=== PATIENT | male | born 1965 | race African-American/Black ===

== ENCOUNTER 2017-04-22 18:07 | Observation (INO) ==
[2017-04-22] MEDS ORDERED: SODIUM CHLORIDE 0.9% 1,000 ML IV STA (18:48)
[2017-04-22 18:55] LABS: Basophils % 0.2 % (0.0-0.8); Eosinophils % 0.3 % (0.00-10.9); Hematocrit 39.2 VOL% (42.0-52.0); Hemoglobin 12.9 GM/DL (14.0-18.0); Immature Granulocytes % 0.3 %; Immature Granulocytes Absolute 0.02 #; Lymphocytes # 0.6 10*3/uL (1.4-4.0); Lymphocytes % 9.8 % (21.2-54.2); Mean Corpuscular HGB Conc 32.9 GM/DL (32-36); Mean Corpuscular Hemoglobin 27 PG (27-34); Mean Corpuscular Volume 83.4 FL (87-102); Mean Platelet Volume 12.1 FL (9.6-12.0); Monocytes # 0.3 10*3/uL (0.11-0.8); Monocytes % 4.5 % (1.7-12.7); Neutrophils # 5.3 10*3/uL (1.4-7.4); Neutrophils % 84.9 % (38.7-73.9); Platelet Count 262 T/CUMM (130-400); Red Cell Distribution Width 13.2 % (9.3-17.3); White Blood Count 6.2 T/CUMM (4-12)
--- NOTE | 2017-04-22 19:15 | XRay Report ---
Portable chest April 22, 2017 Indication: Shortness of breath Comparison images dated April 09, 2014. Findings: Cardiomediastinal contours are stable. Sternotomy wires and midline. Focal scarring within the left lingular lobe, stable. Lungs are otherwise clear bilaterally. No acute osseous abnormalities. Impression: No acute cardiopulmonary findings PROCEDURE INTERPRETED AT [facility] DEPARTMENT OF RADIOLOGY Final Report Signed by: Jono Perry
[2017-04-22 19:25] LABS: Alanine Aminotransferase 30 U/L (16-61); Albumin 3.9 G/DL (3.4-5.0); Alkaline Phosphatase 92 U/L (45-117); Aspartate Amino Transferase 26 U/L (0-37); Blood Urea Nitrogen 41 MG/DL (7-18); Calcium 9.5 MG/DL (8.5-10.1); Glucose 444 MG/DL (74-106); Osmolality,Calculated 294.4 MOS/KG (273-304); Potassium 4.7 MMOL/L (3.5-5.1); Sodium 133 MMOL/L (136-145); Troponin I Only < 0.015 NG/ML (0.00-0.045)
--- NOTE | 2017-04-22 20:36 | Emergency Department Note ---
IRaulito Brooke, am scribing for, and in the presence of, Stefanie Pugh MD 18: 56. Lexy Campbell Leanne, MD, personally performed the services described in this documentation, ascribed by Makayla Cabezas in my presence, and it is both accurate and complete . Arrival - Arrival Chief Complaint: Syncope Stated Complaint: fainting spell ED Nursing Triage Note: PT C/O NEAR SYNCOPAL EPISODE WHILE DRIVING, JUST [employer]. PT REPORTS FEELING LIGHT HEADED AND CLAMMY. STATES HE WAS ABLE TO PULL VEHICLE OVER AND FAMILY TOLD HIM HE WAS "TREMBLING." PT IS [id number] CURRENTLY Mode of Arrival: Ambulatory Limitations: No Limitations Source: Patient, Family, RN Notes Reviewed Time Seen by Provider: 04/22/17 18:45 - History of Present Illness HPI Narrative: Patient is a 51 year old male who presents to the ED with c/o possible syncopal episode that happened prior to arrival. Patient says he was driving and started feeling "faint" so he pulled over. Patient says he thinks he "blanked out for a second." Family in the car with him reports that he started shaking all over but it only lasted a few seconds. Patient says he has been lightheaded since this episode happened. He says he did have some shortness of breath right after this episode but says he no longer does. He denies having any chest pain or any other pain. Prior to driving, he was not in the heat and says he was at a "family meeting" inside. He says he has not really been doing anything else, today, besides cleaning his house. He says on the way to the ED, he did have to stop at [employer] and have a bowel movement. He reports having diarrhea since yesterday and also vomited once last night. He says he has been drinking plenty of fluids. He did have a similar episode, in October, but states that todays episode was worse. Patient has PMHx of HTN and IDDM. Patient had a heart and kidney transplant in 2010. His Specialist is located in [place]. Allergies/Adverse Reactions: Allergies Allergy/AdvReac Type Severity Reaction Status Date / Time No Known Allergies Allergy Verified 04/22/17 18:26 Home Medications: Home Medications Medication Instructions Recorded Confirmed Type Ibuprofen Tab [Motrin Tab] 600 mg PO QID #30 tablet 08/02/16 Rx traMADol TAB [Ultram] 50 mg PO Q6H #20 tablet 01/16/17 Rx Review of System - Review of System 12 point system: reviewed and no additional remarkable complaints except as stated - Review of System Constitutional: Absent: fever Respiratory: Absent: respiratory distress Cardiovascular: Present: syncope (possible). Absent: chest pain Gastrointestinal: Present: vomiting (once last night), diarrhea Skin: Absent: rash Neurological: Present: other (lightheaded) Medical,Surgical,& Family Hx - Medical History Cardio: History of: Hypertension Endocrine: History of: Diabetes Mellitus (IDDM) - Surgical History Cardiac Surgeries: Sugical HX of: Cardiac Surgery (HEART TRANSPLANT 2010) Thoracic Surgeries: Surgical HX of;: Kidney (Renal Surgery) (right kidney transplant) - Social History Smoking Status: Never smoker Frequency of Alcohol Use: None Type of Drug Use: None Exam Vital Signs: Vital Signs Temperature 97.6 F 04/22/17 18:34 Pulse Rate 83 04/22/17 19:25 Respiratory Rate 20 04/22/17 18:45 Blood Pressure 142/80 04/22/17 19:25 O2 Sat by Pulse Oximetry 96 04/22/17 18:45 - General General appearance: alert, in no apparent distress - Head Head exam: Present: atraumatic, normocephalic - Eye Eye exam: Present: normal appearance, PERRL, EOMI - ENT ENT exam: Present: normal exam - Neck Neck exam: Present: normal inspection - Chest Chest inspection: Present: normal inspection, symmetric chest wall rise - Respiratory Respiratory exam: Present: normal lung sounds bilaterally - Cardiovascular Cardiovascular exam: Present: regular rate, normal rhythm, normal heart sounds - Abdominal Exam Abdominal exam: Present: soft, normal bowel sounds. Absent: distention, tenderness - Extremities Exam Extremities exam: Present: normal inspection - Back Exam Back exam: Present: normal inspection - Neurological Exam Neurological exam: Present: alert, oriented X3 - Psychiatric Psychiatric exam: Present: normal affect, normal mood - Skin Skin exam: Present: warm, dry, intact, normal color Course Course Narrative: concern since pt had syncope while driving. orthostatis negative. could be related to dehydration given onset of diarrhea and vomiting yesterday. BUN and Cr elevated. EKG and other labs unremarkable. pt asymptomatic at this time but given heart transplant and syncope while sitting, feel it is best to obs overnight for arrhythmias and rehydrate. Results - Labs CBC & BMP: 04/22/17 18:40 04/22/17 18:40 Lab Results: I have reviewed the patients labs Labs: Laboratory Tests 04/22/17 18:40 WBC 6.2 RBC 4.70 Hgb 12.9 L Hct 39.2 L MCV 83.4 L MCH 27 MCHC 32.9 RDW 13.2 Plt Count 262 MPV 12.1 H Neut % (Auto) 84.9 H Lymph % (Auto) 9.8 L [place] % (Auto) 4.5 Eos % (Auto) 0.3 Baso % (Auto) 0.2 Neut # (Auto) 5.3 Lymph # (Auto) 0.6 L [place] # (Auto) 0.3 Eos # (Auto) 0.0 Baso # (Auto) 0.0 Immature Gran % 0.3 Nucleated RBC % 0.0 Immature Gran # 0.02 Nucleated RBCs # 0.00 Immature Plt Fraction 0.0 Laboratory Tests 04/22/17 04/22/17 18:40 18:40 Sodium 133 L Potassium 4.7 Chloride 100 Carbon Dioxide 26 Anion Gap 11.7 BUN 41 H Creatinine 1.80 H GFR Calculation 59 BUN/Creatinine Ratio 22.00 H Glucose 444 H Calculated Osmolality 294.4 Calcium 9.5 Total Bilirubin 0.50 AST 26 ALT 30 Alkaline Phosphatase 92 Troponin I < 0.015 B-Natriuretic Peptide 105 H Total Protein 7.0 Albumin 3.9 Globulin 3.1 Albumin/Globulin Ratio 1.2 Serum Alcohol < 15 L - EKG EKG results: interpreted by AMARI, sinus rhythm, normal QRS - Impressions incomplete RBBB. - Diagnostic Findings Procedure: Chest x-ray: report reviewed by me (No acute cardiopulmonary findings.)
--- NOTE | 2017-04-22 21:12 | Hospitalist History & Physical ---
Assessment and Plan (1) Syncope Status: Acute Assessment and plan: Admit patient to monitored bed. Patient will be admitted to observation. Will consult neurology for evaluation tomorrow especially since this is recurrence of events. Patient should have an MRI of the brain without contrast. 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 Opportunistic infections can also an issue in this situation. Check serum toxoplasma IgG IgM, cryptococcal antigen. In the differential diagnosis of his syncopal is seizures.. Consultation with neurology to comment on that. Current Visit: Yes (2) Heart transplant status Status: Acute Assessment and plan: Continue immunosuppressive medication Current Visit: Yes (3) Renal transplant, status post Status: Acute Assessment and plan: Continue immunosuppressive medication Current Visit: Yes (4) Increased infection risk status post immunosuppressive therapy Status: Acute Current Visit: Yes (5) Diabetes mellitus type 2 in obese Status: Acute Assessment and plan: Home medications continued. Will check Accu-Cheks q. before meals and at bedtime and supplement home therapy with sliding scale Humulin R. Attention to be fed to hypoglycemic events. Both D50 W and glucagon have been ordered. Current Visit: Yes (6) DVT prophylaxis Status: Acute Assessment and plan: We use unfractionated heparin 5000 units every 12 hours subcu. Note patient's creatinine is 1.8 Current Visit: Yes History of Present Illness Chief complaint: Syncopal episode History of present illness: Patient is a 51 year old male who presents to the ED with c/o possible syncopal episode that happened prior to arrival. Patient says he was driving and started feeling "faint" so he pulled over. Patient says he thinks he "blanked out for a second." Family in the car with him reports that he started shaking all over but it only lasted a few seconds. Patient denies any bite of the tongue and denies any autonomic dyscontrol. Patient says he has been lightheaded since this episode happened and has a slight headache. Patient doubts that he may have been hypoglycemic because he had just eaten at a family gathering within the hour before this happened. That eating fried fish. He denies any food allergies. He says he did have some shortness of breath right after this episode but says he no longer does. He denies having any chest pain or any other pain. After the event today states that he came back to the and was able to drive from [email or web address] where he had a bowel movement that was loose. He denies prolonged diarrhea. Last night after having had a grilled chicken dinner with his son who was visiting from out of town this sat for a long time when he drank 8 ounces of wine and went to bed. Around 3:00 he reports he woke up he vomited. He denies having had nausea and vomiting all day. Patient does have history of hypertension and diabetes and takes insulin. He has a history of heart and kidney transplant through the [facility] in [place]. 6 months ago he had an event like this and was managed there unfortunately could not find what was a long history is. Patient is on immunosuppressive medications manage rejection of his transplants. He states that since he has been here these medications are on record here. I have just discussed with the emergency room nurse to make sure that we get that information on record. I have searched the computer myself I cannot see it at this point. Home Medications Medication Instructions Recorded Confirmed Type Aspirin 81 mg PO DAILY 04/22/17 04/22/17 History Calcium Carbonate [Calcium 1,000 mg PO BID 04/22/17 04/22/17 History Carbonate Chew Tab] Cetirizine Tab [ZyrTEC Tab] 10 mg PO DAILY 04/22/17 04/22/17 History Insulin Detemir [Levemir] 40 unit SUBCUT BEDTIME 04/22/17 04/22/17 History Insulin Glargine [Lantus] 1 unit SUBCUT AC 04/22/17 04/22/17 History Magnesium Chloride [Slow Mag] 64 mg PO TID 04/22/17 04/22/17 History Mycophenolate Mofetil Cap 500 mg PO BID 04/22/17 04/22/17 History [Cellcept] Pravastatin [Pravachol] 20 mg PO BEDTIME 04/22/17 04/22/17 History Sildenafil [Revatio] 20 mg PO TID 04/22/17 04/22/17 History hydrALAZINE TAB [Apresoline Tab] 100 mg PO TID 04/22/17 04/22/17 History predniSONE TAB [PredniSONE] 10 mg PO DAILY 04/22/17 04/22/17 History Allergies Allergy/AdvReac Type Severity Reaction Status Date / Time No Known Allergies Allergy Verified 04/22/17 18:26 Medical,Surgical,& Family Hx - Medical History Cardio: History of: Hypertension Endocrine: History of: Diabetes Mellitus (IDDM) - Surgical History Cardiac Surgeries: Sugical HX of: Cardiac Surgery (HEART TRANSPLANT 2011) Thoracic Surgeries: Surgical HX of;: Kidney (Renal Surgery) (right kidney transplant) - Social History Smoking Status: Never smoker Frequency of Alcohol Use: None Type of Drug Use: None Review of systems: 12 point system assessment is been done. Patient is currently awake and in no acute distress. Denies any focal neurologic deficits cognitive function is good he does acknowledge a light headache. All than the chief complaint history of presenting illness and his past medical history 12 point system assessment is negative. Exam - Constitutional Vitals: Period Temp Pulse Resp BP Sys/Marin Pulse Ox Last 24 Hr 97.6 F-97.6 F 81-91 18-20 130-162/80-95 94-96 General appearance: over weight - Head Head exam: Present: normocephalic, atraumatic - Eye Eye exam: Present: EOMI, other (Dusky is greater) Pupils: Present: NICOLAS - ENT ENT exam: Present: normal oropharynx - Neck Neck exam: Present: normal inspection, other (No adenopathy) - Respiratory Respiratory exam: Present: clear to auscultation bilaterally - Cardiovascular Cardiovascular exam: Present: regular rate and rhythm - GI/Abdominal GI/Abdominal exam: Present: normal bowel sounds, soft, other (Slightly rotund abdomen distended tender to palpation) - Extremities Exam Extremities exam: Present: full ROM, other (Good muscle tone normal strength) - Neurological Exam Neurological exam: Present: alert, oriented X3, CN II-XII intact - Psychiatric Psychiatric exam: Present: normal affect, normal mood - Skin Skin exam: Present: normal color, warm, dry Results - Labs CBC & BMP: 04/22/17 18:40 04/22/17 18:40 Lab Results: I have reviewed the past 24 hour labs (Noted mild hyponatremia 1 33 mmol/L creatinine 1.8 mg percent hypoglycemia with a sugar of 444 mg percent modest microcytic anemia with MCV of 83.4 hemoglobin of 12.9 hematocrit of 39.2 BNP of only 105)
[2017-04-22 21:25] LABS: Apearance,Urine CLEAR (Clear); Bilirubin,Urine Negative (Negative); Blood, Urine Negative (Negative); Glucose,Urine (UA) >=500 mg/dL (Negative); Ketones,Urine 5 mg/dL (Negative); Nitrite,Urine Negative (Negative); Protein,Urine Negative; Squamous Epithelial Cell,Urine Occasional /HPF (0-10); Urine Color Straw (Yellow); Urine Specific Gravity 1.014 (1.001-1.035); Urine Urobilinogen < 2.0 EU/DL (0.2-1.0)
[2017-04-22] MEDS ORDERED: GLUCAGON 1 MG VIAL IM PRN (21:44)
[2017-04-22] MEDS ORDERED: DEXTROSE 50% 25 GM/50 ML SYRINGE IV PRN (21:44)
[2017-04-22] MEDS ORDERED: PRAVASTATIN 20 MG TABLET PO SCH (22:00)
[2017-04-22] MEDS: MYCOPHENOLATE MOFETIL 250 MG CAPSULE PO SCH (23:49)
[2017-04-22] MEDS: CALCIUM CARBONATE CHEW 500 MG TABLET PO SCH (23:49)
[2017-04-22] MEDS: HEPARIN 5,000 UNIT/1 ML VIAL SUBCUT SCH (23:50)
[2017-04-22] MEDS: INSULIN GLARGINE 100 UNIT/ML SUBCUT SCH (23:51)
[2017-04-23] MEDS: MAGNESIUM CHLORIDE 64 MG TABLET PO SCH ×3 (08:47→21:25)
[2017-04-23] MEDS: MYCOPHENOLATE MOFETIL 250 MG CAPSULE PO SCH ×2 (08:47→21:23)
[2017-04-23] MEDS: CALCIUM CARBONATE CHEW 500 MG TABLET PO SCH ×2 (08:47→21:22)
[2017-04-23] MEDS: ASPIRIN CHEW 81 MG TABLET PO SCH (08:48)
[2017-04-23] MEDS: predniSONE 10 MG TABLET PO SCH (08:48)
[2017-04-23] MEDS: SILDENAFIL 20 MG TABLET PO SCH ×3 (08:48→21:36)
[2017-04-23] MEDS: CETIRIZINE 10 MG TABLET PO SCH (08:48)
--- NOTE | 2017-04-23 09:44 | EKG Report ---
Stationary ECG Study [facility] Test Date: 04/22/2017 6:28:03 PM Pat Name: ALONDRA AYOUB Department: Room: 436 Gender: M Shank Skinner: Enzo : 1965 Requested by: Iva Fountain Order Number: [id number] Reading MD: YANI MARK Intervals [place] Rate: 89 P: 65 OK: 166 QRS: 120 QRSD: 109 T: 73 QT: 303 QTc: 349 Interpretive Statements SINUS RHYTHM RIGHT AXIS DEVIATION INCOMPLETE RIGHT BUNDLE BRANCH BLOCK NONSPECIFIC T WAVE ABNORMALITY Electronically Signed On 04-23-17 16:10:07 CDT by YANI MARK [email or web address]
--- NOTE | 2017-04-23 09:54 | EKG Report ---
Stationary ECG Study [facility] Test Date: 04/23/2017 7:57:20 AM Pat Name: ALONDRA AYOUB Department: Room: 436 Gender: M Operations Liaison: OLIVE : 1965 Requested by: Gita Wood Order Number: [id number] Reading MD: YANI MARK Intervals [place] Rate: 81 P: 65 DC: 161 QRS: 125 QRSD: 114 T: 44 QT: 384 QTc: 422 Interpretive Statements SINUS RHYTHM INCOMPLETE RIGHT BUNDLE BRANCH BLOCK Electronically Signed On 04-23-17 16:14:39 CDT by YANI MARK [email or web address]
--- NOTE | 2017-04-23 11:43 | Hospitalist Progress Note ---
Assessment and Plan (1) Syncope Status: Acute Assessment and plan: 1)syncope/spell- begin secured entrance monitor. consult cardiology. restart his home meds for transplant immunosupression and HTN. Neuro also consulted. MRI this afternoon. 2)DMT2- restart his home meds and SSI 3)Heart and kidney transplant- continue meds for immunosuppression. Current Visit: Yes (2) Heart transplant status Status: Acute Current Visit: Yes (3) Renal transplant, status post Status: Acute Current Visit: Yes (4) Diabetes mellitus type 2 in obese Status: Acute Current Visit: Yes (5) DVT prophylaxis Status: Acute Current Visit: Yes Hospitalist: Subjective Interval history: Mr Monson recounted the events of yesterday and also the previous time to me this morning. He says he felt back to himself within an hour. The spell happened as he was driving away from family meeting to plan a reunion which he says went well and was not tense or upsetting. He had spells like this in the past when he stood too fast. He also notes that when he eats a regular meal he begins to feel tired and weak about 30 minutes later. He has not had syncope in that circumstance but this has been happening for 2-3 weeks. He also relates diarrhea after the spell yesterday. He has not had weight loss. His blood sugar has not been low when he has had these symptoms, and once it was in the 170s he recalls. He denies frequent alcohol or intoxication, but had had 8oz of wine prior to the event yesterday. Exam - Constitutional Vitals: Period Temp Pulse Resp BP Sys/Marin Pulse Ox Last 24 Hr 96.7 F-98.3 F 77-91 16-20 130-172/80-101 91-96 General appearance: no acute distress, over weight - Head Head exam: Present: normocephalic, atraumatic - Eye Eye exam: Present: EOMI. Absent: scleral icterus - Respiratory Respiratory exam: Present: clear to auscultation bilaterally - Cardiovascular Cardiovascular exam: Present: regular rate and rhythm - GI/Abdominal GI/Abdominal exam: Present: normal bowel sounds, soft. Absent: tenderness - Extremities Exam Extremities exam: Absent: edema Results - Labs CBC & BMP: 04/22/17 18:40 04/22/17 18:40 Lab Results: I have reviewed the past 24 hour labs
[2017-04-23] MEDS ORDERED: DEXTROSE 50% 25 GM/50 ML SYRINGE IV PRN (11:48)
[2017-04-23] MEDS: INSULIN LISPRO 100 UNIT/ML SUBCUT SCH ×3 (12:18→21:26)
[2017-04-23] MEDS: HEPARIN 5,000 UNIT/1 ML VIAL SUBCUT SCH ×2 (12:18→21:27)
--- NOTE | 2017-04-23 14:47 | Cardiology Consult Note ---
Sami Campbell Lesley, KAMRAN, am scribing for, and in the presence of, Chung Briceño MD 14:45. 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 Monson is a 51 year old male with a history of heart and kidney transplant. Patient does not see a major gifts officer locally, but follows up with [facility] transplant team twice a year with an echocardiogram, EKG, and right heart cath yearly. Patient was last seen at [facility] in 01/2017, no records are available. Past surgical history is significant for heart transplant and kidney transplant in 2010. Past medical history significant for hypertension, immunosuppression therapy, and diabetes. Cardiac risk factors significant for obesity, hypertension, diabetes, and dyslipidemia. The patient denies a history of smoking, he admits occasional alcohol use. He denies illicit drug use. Patient presented to the emergency room after possible syncopal episode. He reports that he was driving and began to feel lightheaded, he reports he pulled to the side of the road to allow the episode passed. He reports that his son told him that he was holding onto the steering well with his hands and shaking all over. This was reported to have lasted only a few seconds. He denies chest pain with the episode, he did report some shortness of breath immediately post episode. He does report 1 loose stool that he noted after this episode, and he states he had his son bring him to the ER after that. The patient reports he just eaten a large meal at a family gathering, so hypoglycemia seems less likely. The patient reports that he has had an episode like this in the more recent past, he reports he was seen at this hospital for this episode, however I am unable to find previous records confirming this. The patient is seen sitting up in a chair, on 2 L of oxygen by nasal cannula. He denies shortness of breath, chest pain, nausea, vomiting, or diarrhea. Vital signs have remained stable, including orthostatic vital signs. EKG shows sinus rhythm, rate in the 80s. Chest x-ray shows no acute cardiopulmonary findings. Labs reviewed: Hemoglobin 12.9, hematocrit 39.2, sodium 133, potassium 4.7, creatinine 1.8, BUN 41, glucose 444, magnesium 1.9, BNP 105, troponin I negative, urinalysis negative. Recommend continued telemetry monitoring, could consider Holter monitor upon discharge. Plan for MRI of the brain this afternoon, and neurology has been consulted. ASSESSMENT/PLAN: 1. POSSIBLE SYNCOPAL EPISODE -continue youth nutritional monitor, neurology consult, brain MRI. 2. STATUS POST HEART TRANSPLANT -continue immunosuppressive medications, no records available from [facility], patient reports he had recent echo and EKG. He reports he was told he needs to better control his diabetes. 3. STATUS POST RENAL TRANSPLANT -continue immunosuppressive medications. 4. HYPERTENSION -meds restarted, monitor and adjust medications accordingly. 5. DIABETES -Accu-Cheks and sliding scale ordered, monitor. Cardiology addendum. Patient examined chart reviewed and discussed with nurse Lacie Gallardo. Patient had brief near syncopal episode while driving his car. No loss of consciousness. Denied palpitations or chest pain. No seizure activity. Patient is comfortable at this time and has had no recurrent symptoms. There is no clinical history to suggest arrhythmias. Status post heart transplant and kidney transplant June 2011 at [facility] for hypertensive cardiomyopathy. He is seen every 4 months in cardiac follow-up at [facility]. EKG shows sinus rhythm with right axis deviation and right bundle branch block and ST-T wave changes. Chest x-ray normal heart size no infiltrate or effusion. Patient denies fever chills or night sweats. No cough. No dysuria. He does have long-standing hypertension. Pressure today 146/84 in the left arm by me Lifetime non-smoker. Rare social drinker only. 5 feet 8 inches tall 204 pounds. He sleeps on 2 pillows and has nocturia twice nightly which is chronic. Denies chest pain, sustained palpitations dizziness or leg edema Creatinine 1.80 BUN 41 potassium 4.7 Longtime diabetic. Sugars are running high. To 88 and 347 Chronic immunosuppressive therapy with CellCept 500 mg twice daily and prednisone 10 mg daily Plan Ambulate and monitor Echo Doppler Currently takes Coreg 25 mg twice daily and hydralazine 100 mg 3 times daily for hypertension Agree with adding diltiazem 180 mg daily and may require additional therapy. CC: Gita Wood MD - Home Medications and Allergies Home Medications: Home Medications Medication Instructions Recorded Confirmed Type Aspirin 81 mg PO DAILY 04/22/17 04/23/17 History Calcium Carbonate [Calcium 1,000 mg PO BID 04/22/17 04/23/17 History Carbonate Chew Tab] Cetirizine Tab [ZyrTEC Tab] 10 mg PO DAILY 04/22/17 04/23/17 History Insulin Detemir [Levemir] 40 unit SUBCUT BEDTIME 04/22/17 04/23/17 History Insulin Glargine [Lantus] 1 unit SUBCUT AC 04/22/17 04/23/17 History Magnesium Chloride [Slow Mag] 64 mg PO TID 04/22/17 04/23/17 History Mycophenolate Mofetil Cap 500 mg PO BID 04/22/17 04/23/17 History [Cellcept] Sildenafil [Revatio] 20 mg PO TID 04/22/17 04/23/17 History hydrALAZINE TAB [Apresoline Tab] 100 mg PO TID 04/22/17 04/23/17 History predniSONE TAB [PredniSONE] 10 mg PO DAILY 04/22/17 04/23/17 History Atorvastatin [Lipitor] 40 mg PO BEDTIME 04/23/17 04/23/17 History Carvedilol 25 mg PO BID W/MEALS 04/23/17 04/23/17 History Tacrolimus Cap [Prograf Cap] 1 mg PO BID 04/23/17 04/23/17 History dilTIAZem HCl [Cartia XT] 180 mg PO DAILY 04/23/17 04/23/17 History Allergies/Adverse Reactions: Allergies Allergy/AdvReac Type Severity Reaction Status Date / Time No Known Allergies Allergy Verified 04/22/17 18:26 - Constitutional Constitutional: Absent: anorexia, chills, daytime sleepiness, frequent falls, headache(s), lethargy - EENT Eyes: Absent: blurry vision Nose, mouth and throat: Absent: dysphagia, epistaxis, headache(s) - Cardiovascular Cardiovascular: Present: lightheadedness, orthopnea. Absent: chest pain at rest , chest pain with activity, diaphoresis, dyspnea, dyspnea on exertion, edema, radiating jaw, neck or arm pain, palpitations - Respiratory Respiratory: Absent: cough, dyspnea, hemoptysis, dyspnea on exertion, wheezing - Gastrointestinal Gastrointestinal: Absent: abdominal pain, bloating, change in bowel habits, coffee ground emesis, heartburn, hematemesis, nausea - Genitourinary Genitourinary: Absent: difficulty urinating, dysuria - Neurological Neurological: Present: dizziness. Absent: abnormal gait, abnormal speech, behavioral changes - Psychiatric Psychiatric: Absent: anxiety, confusion Medical,Surgical,& Family Hx - Medical History Cardio: History of: Hypertension Endocrine: History of: Diabetes Mellitus (IDDM) - Surgical History Cardiac Surgeries: Sugical HX of: Cardiac Surgery (HEART TRANSPLANT 2010) Thoracic Surgeries: Surgical HX of;: Kidney (Renal Surgery) (right kidney transplant) - Social History Smoking Status: Never smoker Frequency of Alcohol Use: None Type of Drug Use: None Functional capacity: independent ambulation Physical Examination Vital Signs Temp Pulse Resp BP Pulse Ox 97.6 F 89 18 142/88 94 L 04/22/17 18:21 04/22/17 18:21 04/22/17 18:21 04/22/17 18:21 04/22/17 18:21 Exam: General: [Appears well with no apparent distress.] [Pleasant and cooperative. ] [Appears comfortable.] HEENT: [PERRL, normocephalic, atraumatic]. [Mucous membranes moist.] [No jaundice noted.] [Conjunctiva moist and clear, sclerae anicteric.] Neck: [No JVD/HJR, no thyromegaly or lymphadenopathy noted.] [ No carotid bruit appreciated.] Cardiac: [Regular rate and rhythm.] [No murmur rub or gallop.] [PMI is nondisplaced.] Lungs: [Clear to auscultation without accessory muscle use to assist the respiratory pattern.] [Oxygen in use via nasal cannula at 2 L.] Abdomen: [Soft, bowel sounds normoactive.] [Nontender and nondistended.] [No abdominal bruit or thrill noted.] [No masses noted.] Musculoskeletal: [No fluid collection.] [Full range of motion is noted.] Extremities: [No clubbing, cyanosis noted.] [ No edema noted.] [Upper extremity pulses 2+.] [Lower extremity pulses 2+.] [Capillary refill less than 3 seconds.] Skin: [No unusual lesions or rashes.] [No skin breakdown appreciated.] Neuro: [Awake, alert and oriented 3.] [Moves all extremities well without hemiparesis or paralysis.] [No essential tremor is appreciated.] Result/EKG - Labs CBC & BMP: 04/22/17 18:40 04/22/17 18:40 Lab Results: I have reviewed the past 24 hour labs Labs: Laboratory Results - last 24 hr 04/22/17 04/22/17 04/22/17 18:40 18:40 18:40 WBC 6.2 RBC 4.70 Hgb 12.9 L Hct 39.2 L MCV 83.4 L MCH 27 MCHC 32.9 RDW 13.2 Plt Count 262 MPV 12.1 H Neut % (Auto) 84.9 H Lymph % (Auto) 9.8 L [place] % (Auto) 4.5 Eos % (Auto) 0.3 Baso % (Auto) 0.2 Neut # (Auto) 5.3 Lymph # (Auto) 0.6 L [place] # (Auto) 0.3 Eos # (Auto) 0.0 Baso # (Auto) 0.0 Immature Gran % 0.3 Nucleated RBC % 0.0 Immature Gran # 0.02 Nucleated RBCs # 0.00 Immature Plt Fraction 0.0 Sodium 133 L Potassium 4.7 Chloride 100 Carbon Dioxide 26 Anion Gap 11.7 BUN 41 H Creatinine 1.80 H GFR Calculation 59 BUN/Creatinine Ratio 22.00 H Glucose 444 H POC Glucose Calculated Osmolality 294.4 Calcium 9.5 Magnesium Total Bilirubin 0.50 AST 26 ALT 30 Alkaline Phosphatase 92 Troponin I < 0.015 B-Natriuretic Peptide 105 H Total Protein 7.0 Albumin 3.9 Globulin 3.1 Albumin/Globulin Ratio 1.2 Urine Color Urine Appearance Urine pH Ur Specific [place] Urine Protein Urine Glucose (UA) Urine Ketones Urine Blood Urine Nitrate Urine Bilirubin Urine Urobilinogen Urine Leukocytes Ur Squamous Epith Cells Ur Culture Indicated? Serum Alcohol < 15 L 04/22/17 04/22/17 04/23/17 21:20 23:02 07:43 WBC RBC Hgb Hct MCV MCH MCHC RDW Plt Count MPV Neut % (Auto) Lymph % (Auto) [place] % (Auto) Eos % (Auto) Baso % (Auto) Neut # (Auto) Lymph # (Auto) [place] # (Auto) Eos # (Auto) Baso # (Auto) Immature Gran % Nucleated RBC % Immature Gran # Nucleated RBCs # Immature Plt Fraction Sodium Potassium Chloride Carbon Dioxide Anion Gap BUN Creatinine GFR Calculation BUN/Creatinine Ratio Glucose POC Glucose 288 H 269 H Calculated Osmolality Calcium Magnesium Total Bilirubin AST ALT Alkaline Phosphatase Troponin I B-Natriuretic Peptide Total Protein Albumin Globulin Albumin/Globulin Ratio Urine Color Straw Urine Appearance Clear Urine pH 6.0 Ur Specific [place] 1.014 Urine Protein Negative Urine Glucose (UA) >=500 Urine Ketones 5 Urine Blood Negative Urine Nitrate Negative Urine Bilirubin Negative Urine Urobilinogen < 2.0 H Urine Leukocytes Negative Ur Squamous Epith Cells Occasional Ur Culture Indicated? Not indicated Serum Alcohol 04/23/17 11:03 WBC RBC Hgb Hct MCV MCH MCHC RDW Plt Count MPV Neut % (Auto) Lymph % (Auto) [place] % (Auto) Eos % (Auto) Baso % (Auto) Neut # (Auto) Lymph # (Auto) [place] # (Auto) Eos # (Auto) Baso # (Auto) Immature Gran % Nucleated RBC % Immature Gran # Nucleated RBCs # Immature Plt Fraction Sodium Potassium Chloride Carbon Dioxide Anion Gap BUN Creatinine GFR Calculation BUN/Creatinine Ratio Glucose POC Glucose Calculated Osmolality Calcium Magnesium 1.9 Total Bilirubin AST ALT Alkaline Phosphatase Troponin I B-Natriuretic Peptide Total Protein Albumin Globulin Albumin/Globulin Ratio Urine Color Urine Appearance Urine pH Ur Specific [place] Urine Protein Urine Glucose (UA) Urine Ketones Urine Blood Urine Nitrate Urine Bilirubin Urine Urobilinogen Urine Leukocytes Ur Squamous Epith Cells Ur Culture Indicated? Serum Alcohol - Diagnostic Findings Procedure: Chest x-ray: report reviewed by me - EKG EKG results: interpreted by me, sinus rhythm I, Chung Briceño MD, personally performed the services described in this documentation, ascribed by Luisana Gallardo NP in my presence, and it is both accurate and complete 446 .
--- NOTE | 2017-04-23 14:50 | Magnetic Resonance Report ---
Exam: MRI brain without contrast Exam date: April 23, 2017 at 1323 hours Indication: Syncope, immunocompromise patient, loss of consciousness Comparison: No relevant comparisons Technique: Multiplanar, multisequence magnetic resonance imaging of the brain without contrast was performed in routine fashion. Axial, coronal and sagittal images submitted for interpretation Findings: Parenchyma: No mass effect or midline shift. No intra or extra-axial hemorrhage. No signal changes to suggest acute infarction. No demonstratable mass. Few tiny punctate T-2/flair hyperintensities within the subcortical left frontal lobe of doubtful clinical significance and likely represents early microangiopathic small vessel ischemic changes. Ventricles and sulci: Normal in size and configuration Posterior fossa: Cerebellum, brainstem and cervicomedullary junction are preserved Orbits and sinuses: Globes and orbits are intact. Periorbital and pericatheter spaces are normal. Mild maxillary sinus inflammatory changes are noted. Sella: Pituitary is normal. Osseous: No abnormality of the skull base or calvarium is identified Impression: 1. Normal noncontrast MR brain for age 2. Acute and chronic inflammatory changes within bilateral maxillary sinuses PROCEDURE INTERPRETED AT [facility] [place] DEPARTMENT OF RADIOLOGY Final Report Signed by: Jono Perry
[2017-04-23] MEDS: CARVEDILOL 25 MG TABLET PO SCH (16:32)
--- NOTE | 2017-04-23 17:29 | Neurology Consult Note ---
History of Present Illness History of present illness: Patient is a 51 year old right-handed -Vietnamese gentleman with past medical history significant for heart transplant, kidney transplant, hypertension, diabetes who presents to the ED with c/o possible syncopal episode that happened prior to arrival. Patient says he was driving and started feeling "faint" so he pulled over. Patient says he thinks he "blanked out for a second." Family in the car with him reports that he started shaking all over but it only lasted a few seconds. Patient denies tongue biting however did lose control of bladder. Patient doubts that he may have been hypoglycemic because he had just eaten at a family gathering within the hour before this happened. He says he did have some shortness of breath right after this episode but says he no longer does. He denies having any chest pain or any other pain. After the event states that he came back to the and was able to drive from [employer] where he had a bowel movement that was loose. The night prior to admission after dinner he drank 8 ounces of wine and went to bed. Around 3:00 in the morning he reports he woke up vomited. He had a similar episode almost 6 months ago and prior to that 2 years ago had another one. All of the episodes are stereotypical. Patient is on immunosuppressive medications manage rejection of his transplants. MRI of the brain reveals no acute abnormalities Home Medications Medication Instructions Recorded Confirmed Type Aspirin 81 mg PO DAILY 04/22/17 04/23/17 History Calcium Carbonate [Calcium 1,000 mg PO BID 04/22/17 04/23/17 History Carbonate Chew Tab] Cetirizine Tab [ZyrTEC Tab] 10 mg PO DAILY 04/22/17 04/23/17 History Insulin Detemir [Levemir] 40 unit SUBCUT BEDTIME 04/22/17 04/23/17 History Insulin Glargine [Lantus] 1 unit SUBCUT AC 04/22/17 04/23/17 History Magnesium Chloride [Slow Mag] 64 mg PO TID 04/22/17 04/23/17 History Mycophenolate Mofetil Cap 500 mg PO BID 04/22/17 04/23/17 History [Cellcept] Sildenafil [Revatio] 20 mg PO TID 04/22/17 04/23/17 History hydrALAZINE TAB [Apresoline Tab] 100 mg PO TID 04/22/17 04/23/17 History predniSONE TAB [PredniSONE] 10 mg PO DAILY 04/22/17 04/23/17 History Atorvastatin [Lipitor] 40 mg PO BEDTIME 04/23/17 04/23/17 History Carvedilol 25 mg PO BID W/MEALS 04/23/17 04/23/17 History Tacrolimus Cap [Prograf Cap] 1 mg PO BID 04/23/17 04/23/17 History dilTIAZem HCl [Cartia XT] 180 mg PO DAILY 04/23/17 04/23/17 History Allergies Allergy/AdvReac Type Severity Reaction Status Date / Time No Known Allergies Allergy Verified 04/22/17 18:26 12 point system: reviewed and no additional remarkable complaints except as stated Medical,Surgical,& Family Hx - Medical History Cardio: History of: Hypertension Endocrine: History of: Diabetes Mellitus (IDDM) - Surgical History Cardiac Surgeries: Sugical HX of: Cardiac Surgery (HEART TRANSPLANT 2010) Thoracic Surgeries: Surgical HX of;: Kidney (Renal Surgery) (right kidney transplant) - Social History Smoking Status: Never smoker Frequency of Alcohol Use: None Type of Drug Use: None Exam - Constitutional Vitals: Period Temp Pulse Resp BP Sys/Marin Pulse Ox Last 24 Hr 96.7 F-98.3 F 74-91 16-20 130-172/80-101 91-96 Exam: GENERAL: Patient is in no acute distress. NECK: Neck is supple. There is no JVD. No carotid bruits present. No thyroid masses. CVS: First and second heart sounds are normal. There is no S3 present. Regular rate and rhythm. RESPIRATORY: Lungs are clear to auscultation without any rales or rhonchi. ABDOMEN: Soft and non-tender. Bowel sounds are present. There is no hepatosplenomegaly. EXT: There is no palpable edema. Peripheral pulses are present. Skin: No rashes Central Nervous system: General: Alert, awake and Oriented x 3 Speech: Fluent Comprehension: Intact and normal Facial expressions: Normal Cranial Nerves: CN1/Olfactory: Normal CN II/ Optic: Normal, Visual Garvin unreliable CN III, and : NICOLAS & EOMI CN V: Normal & intact CN VII: face is symmetric CNVIII: Normal CN XI/X/XI/XII: Intact and Normal Motor: Bulk and Tone is normal. Strength in the right 5/5 Strength in the left 5/5 Sensory: Grossly intact for all the modalities of PP, LT and temp sense Reflexes: 1+ and symmetrical Cerebellar function: Normal finger to nose and heel to avery testing. Toes: Equivocal Gait: Normal heel to heel and toe to toe and tandem walk. Results - Labs CBC & BMP: 04/22/17 18:40 04/22/17 18:40 Assessment and Plan (1) Syncope Status: Acute Assessment and plan: Patient has had 3 episodes in the last 2-1/2 years and they were all stereotypical which raised the suspicious of seizure activity. Other differential would include cardiac arrhythmias. He denies drinking on a regular basis though. No other history of drug abuse reported either. We will go ahead and put him on Keppra to see if it is stopped further episodes. EEG He may will need long-term video EEG monitoring as an outpatient for further clarification. Thank you for the consult Current Visit: Yes
[2017-04-23] MEDS: TACROLIMUS 0.5 MG CAPSULE PO SCH (21:23)
[2017-04-23] MEDS: ATORVASTATIN 40 MG TABLET PO SCH (21:24)
[2017-04-23] MEDS: levETIRAcetam 250 MG TABLET PO SCH (21:25)
[2017-04-23] MEDS: INSULIN GLARGINE 100 UNIT/ML SUBCUT SCH (21:26)
[2017-04-24 05:34] LABS: Basophils % 0.2 % (0.0-0.8); Eosinophils # 0.1 10*3/uL (0.0-0.87); Eosinophils % 1.4 % (0.00-10.9); Hematocrit 38.7 VOL% (42.0-52.0); Hemoglobin 12.7 GM/DL (14.0-18.0); Immature Granulocytes % 0.4 %; Immature Granulocytes Absolute 0.02 #; Lymphocytes # 1.5 10*3/uL (1.4-4.0); Lymphocytes % 29.9 % (21.2-54.2); Mean Corpuscular HGB Conc 32.8 GM/DL (32-36); Mean Corpuscular Hemoglobin 27 PG (27-34); Mean Corpuscular Volume 83.4 FL (87-102); Mean Platelet Volume 12.2 FL (9.6-12.0); Monocytes # 0.5 10*3/uL (0.11-0.8); Monocytes % 11.1 % (1.7-12.7); Neutrophils # 2.8 10*3/uL (1.4-7.4); Platelet Count 256 T/CUMM (130-400); Red Blood Count 4.64 MC/CUMM (3.8-5.5); Red Cell Distribution Width 13.2 % (9.3-17.3); White Blood Count 4.9 T/CUMM (4-12)
[2017-04-24 06:09] LABS: Calcium 9.6 MG/DL (8.5-10.1); Osmolality,Calculated 284.5 MOS/KG (273-304)
[2017-04-24] MEDS: INSULIN LISPRO 100 UNIT/ML SUBCUT SCH ×4 (07:30→22:34)
[2017-04-24] MEDS: TACROLIMUS 0.5 MG CAPSULE PO SCH ×2 (09:31→22:32)
[2017-04-24] MEDS: MYCOPHENOLATE MOFETIL 250 MG CAPSULE PO SCH ×2 (09:31→22:31)
[2017-04-24] MEDS: predniSONE 10 MG TABLET PO SCH (09:32)
[2017-04-24] MEDS: CALCIUM CARBONATE CHEW 500 MG TABLET PO SCH ×2 (09:32→22:30)
[2017-04-24] MEDS: levETIRAcetam 250 MG TABLET PO SCH ×3 (09:33→22:33)
[2017-04-24] MEDS: CARVEDILOL 25 MG TABLET PO SCH ×2 (09:33→16:01)
[2017-04-24] MEDS: SILDENAFIL 20 MG TABLET PO SCH ×3 (09:33→22:33)
[2017-04-24] MEDS: ASPIRIN CHEW 81 MG TABLET PO SCH (09:33)
[2017-04-24] MEDS: MAGNESIUM CHLORIDE 64 MG TABLET PO SCH ×3 (09:33→22:30)
[2017-04-24] MEDS: DILTIAZEM CD 180 MG CAPSULE PO SCH (09:33)
[2017-04-24] MEDS: HEPARIN 5,000 UNIT/1 ML VIAL SUBCUT SCH ×2 (09:35→22:37)
--- NOTE | 2017-04-24 11:18 | Hospitalist Progress Note ---
Assessment and Plan (1) Syncope Status: Acute Assessment and plan: 1)syncope/spell- EEG and echo pending. MRI was normal. Await Dr Dejesus's reading of EEG. 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 2)DMT2- on his home meds and SSI his glucose is controlled. 3)Heart and kidney transplant- continue meds for immunosuppression. Current Visit: Yes (2) Heart transplant status Status: Chronic Current Visit: Yes (3) Renal transplant, status post Status: Chronic Current Visit: Yes (4) Diabetes mellitus type 2 in obese Status: Chronic Current Visit: Yes (5) DVT prophylaxis Status: Acute Current Visit: Yes Hospitalist: Subjective Interval history: Mr Monson feels good this morning. He has not had any new symptoms. He was started on Keppra when Dr Dejesus saw him last night and had an EEG this morning. His tele monitor has been NSR. Echo pending. Exam - Constitutional Vitals: Period Temp Pulse Resp BP Sys/Marin Pulse Ox Last 24 Hr 96.6 F-97.4 F 74-100 18-20 127-160/72-89 91-99 General appearance: no acute distress, over weight - Eye Eye exam: Present: EOMI. Absent: scleral icterus - Respiratory Respiratory exam: Present: clear to auscultation bilaterally - Cardiovascular Cardiovascular exam: Present: regular rate and rhythm - GI/Abdominal GI/Abdominal exam: Present: normal bowel sounds, soft. Absent: tenderness - Extremities Exam Extremities exam: Absent: edema Results - Labs CBC & BMP: 04/24/17 05:05 04/24/17 05:05 Lab Results: I have reviewed the past 24 hour labs
--- NOTE | 2017-04-24 17:43 | Neurology Progress Note ---
Neurology - PN : Subjective Interval history: Patient seems to be doing better. No new problems reported. Feeling better. No more spells reported. EEG is within normal limits Exam (Progress Note) - Constitutional Vitals: Period Temp Pulse Resp BP Sys/Marin Pulse Ox Last 24 Hr 96.6 F-97.7 F 80-100 18-20 127-201/72-109 91-99 Exam: GENERAL: Patient is in no acute distress. NECK: Neck is supple. There is no JVD. No carotid bruits present. No thyroid masses. CVS: First and second heart sounds are normal. There is no S3 present. Regular rate and rhythm. RESPIRATORY: Lungs are clear to auscultation without any rales or rhonchi. ABDOMEN: Soft and non-tender. Bowel sounds are present. There is no hepatosplenomegaly. EXT: There is no palpable edema. Peripheral pulses are present. Skin: No rashes Central Nervous system: General: Alert, awake and Oriented x 3 Speech: Fluent Comprehension: Intact and normal Facial expressions: Normal Cranial Nerves: CN1/Olfactory: Normal CN II/ Optic: Normal, Visual Garvin unreliable CN III, and : NICOLAS & EOMI CN V: Normal & intact CN VII: face is symmetric CNVIII: Normal CN XI/X/XI/XII: Intact and Normal Motor: Bulk and Tone is normal. Strength in the right 5/5 Strength in the left 5/5 Sensory: Grossly intact for all the modalities of PP, LT and temp sense Reflexes: 1+ and symmetrical Cerebellar function: Normal finger to nose and heel to avery testing. Toes: Equivocal Gait: Normal heel to heel and toe to toe and tandem walk. Results - Labs CBC & BMP: 04/24/17 05:05 04/24/17 05:05 Assessment and Plan (1) Syncope Status: Acute Assessment and plan: Continue Keppra 250 mg 3 times daily Follow-up in 4 weeks Sign off please call as needed Current Visit: Yes Specialty Discharge - Follow Up or Referrals Follow up with: Sherman Dejesus MD [Physician] - 1 Month
--- NOTE | 2017-04-24 18:45 | Cardiology Progress Note ---
Sandor Campbell April RN, am scribing for, and in the presence of, Dwayne Guan MD 18:45. Assessment and Plan (1) Syncope Status: Acute Assessment and plan: 04/24/17 No obvious cause of syncope so far MRI was negative EEG has been done and pending. Echo has been done and pending Monitor shows no arrhythmia We will have patient ambulate some with assistance and sitting up in a chair If neurological workup is negative and no obvious cardiac cause could let him go home and follow with [facility] where they could do further testing or evaluation based on their knowledge of him and he has known cardiac and renal transplant. Current Visit: Yes (2) Status post heart transplant Status: Chronic Current Visit: Yes (3) Diabetes mellitus type 2 in obese Status: Chronic Current Visit: Yes (4) Hypertension Status: Chronic Current Visit: Yes (5) Renal transplant, status post Status: Chronic Current Visit: Yes Cardiology - PN: Subj Interval history: Glass Washer: [facility] transplant team Summary: Mr. Monson is a 51 year old male with a history of heart and kidney transplant. Patient does not see a forepart rounder locally, but follows up with [facility] transplant team twice a year with an echocardiogram, EKG, and right heart cath yearly. Patient was last seen at [facility] in 01/2017, no records are available. Past surgical history is significant for heart transplant and kidney transplant in 2010. Past medical history significant for hypertension, immunosuppression therapy, and diabetes. Cardiac risk factors significant for obesity, hypertension, diabetes, and dyslipidemia. Patient presented to the emergency room April 22 after possible syncopal episode while driving. He denies chest pain with the episode, he did report some shortness of breath immediately post episode. The patient reports that he has had an episode like this in the more recent past, he reports he was seen at this hospital for this episode, however I am unable to find previous records confirming this. EKG shows sinus rhythm, rate in the 80s. Chest x-ray shows no acute cardiopulmonary findings. April 24, 2017: Mr. Monson is seen on 4 E. this morning, he has just returned from having EEG. He denies any chest pain or shortness of breath. He denies having any further episodes of syncope or near syncope. MRI of the brain done yesterday did not show any acute findings. laboratory monitor currently shows sinus rhythm with heart rates in the 90s. Diltiazem has been added to his medical regimen, his blood pressures have improved. Pressure this morning 138/ 82. Creatinine is improved this morning to 1.4. An echocardiogram has been ordered. Exam (Progress Note) - Constitutional Vitals: Period Temp Pulse Resp BP Sys/Marin Pulse Ox Last 24 Hr 96.6 F-97.4 F 74-100 18-20 127-160/72-89 91-99 General appearance: no acute distress, over weight - Head Head exam: Absent: abrasion, hematoma - Eye Eye exam: Absent: periorbital swelling, laceration to eyelids Pupils: Present: NICOLAS - Neck Neck exam: Absent: lymphadenopathy, tenderness - Respiratory Respiratory exam: Present: clear to auscultation bilaterally. Absent: accessory muscle use, chest wall tenderness - Cardiovascular Cardiovascular exam: Present: regular rate and rhythm. Absent: systolic murmur - GI/Abdominal GI/Abdominal exam: Present: normal bowel sounds, soft. Absent: distended, tenderness - Extremities Exam Extremities exam: Absent: calf tenderness, edema - Neurological Exam Neurological exam: Present: alert, oriented X3 - Psychiatric Psychiatric exam: Present: normal affect, normal mood - Skin Skin exam: Present: warm, dry Result/EKG - Labs CBC & BMP: 04/24/17 05:05 04/24/17 05:05 Lab Results: I have reviewed the past 24 hour labs Labs: Laboratory Results - last 24 hr 04/23/17 04/23/17 04/23/17 11:03 11:51 15:56 WBC RBC Hgb Hct MCV MCH MCHC RDW Plt Count MPV Neut % (Auto) Lymph % (Auto) [place] % (Auto) Eos % (Auto) Baso % (Auto) Neut # (Auto) Lymph # (Auto) [place] # (Auto) Eos # (Auto) Baso # (Auto) Immature Gran % Nucleated RBC % Immature Gran # Nucleated RBCs # Immature Plt Fraction Sodium Potassium Chloride Carbon Dioxide Anion Gap BUN Creatinine GFR Calculation BUN/Creatinine Ratio Glucose POC Glucose 347 H 360 H Calculated Osmolality Calcium Magnesium 1.9 04/23/17 04/24/17 04/24/17 18:26 05:05 05:05 WBC 4.9 RBC 4.64 Hgb 12.7 L Hct 38.7 L MCV 83.4 L MCH 27 MCHC 32.8 RDW 13.2 Plt Count 256 MPV 12.2 H Neut % (Auto) 57.0 Lymph % (Auto) 29.9 [place] % (Auto) 11.1 Eos % (Auto) 1.4 Baso % (Auto) 0.2 Neut # (Auto) 2.8 Lymph # (Auto) 1.5 [place] # (Auto) 0.5 Eos # (Auto) 0.1 Baso # (Auto) 0.0 Immature Gran % 0.4 Nucleated RBC % 0.0 Immature Gran # 0.02 Nucleated RBCs # 0.00 Immature Plt Fraction 0.0 Sodium 139 Potassium 4.0 Chloride 104 Carbon Dioxide 27 Anion Gap 12.0 BUN 27 H Creatinine 1.40 H GFR Calculation 80 BUN/Creatinine Ratio 19.00 Glucose 150 H POC Glucose 322 H Calculated Osmolality 284.5 Calcium 9.6 Magnesium 04/24/17 04/24/17 07:36 08:11 WBC RBC Hgb Hct MCV MCH MCHC RDW Plt Count MPV Neut % (Auto) Lymph % (Auto) [place] % (Auto) Eos % (Auto) Baso % (Auto) Neut # (Auto) Lymph # (Auto) [place] # (Auto) Eos # (Auto) Baso # (Auto) Immature Gran % Nucleated RBC % Immature Gran # Nucleated RBCs # Immature Plt Fraction Sodium Potassium Chloride Carbon Dioxide Anion Gap BUN Creatinine GFR Calculation BUN/Creatinine Ratio Glucose POC Glucose 53 L 86 Calculated Osmolality Calcium Magnesium - Diagnostic Findings Procedure: Chest x-ray: report reviewed by me - EKG EKG results: interpreted by me EKG shows: sinus rhythm Specialty Discharge - Follow Up or Referrals Follow up with: Sherman Dejesus MD [Physician] - 1 Month I, Dwayne Guan MD, personally performed the services described in this documentation, ascribed by Shannan Patten RN in my presence, and it is both accurate and complete 845 .
--- NOTE | 2017-04-24 19:54 | Electroencephalogram ---
HISTORY: A 51-year-old male with a history of syncope. INTRODUCTION: A digital EEG was performed using the standard 10/20 system of electrode placement wit h one channel of EKG monitoring. Photic stimulation is performed. DESCRIPTION OF RECORD: The background is very well organized, consists of 8.5 to 9 hertz moderate am plitude, bilaterally symmetrical alpha rhythm predominantly in the posterior head region that attenua marti with eye opening. Photic stimulation elicits driving response at intermediate flash frequencies. Hyperventilation was not performed. There are no focal, sharp-wave, spike or wave activity seen. Heart rate 75 beats per minute. IMPRESSION: NORMAL EEG DURING WAKEFULNESS. CLINICAL CORRELATION: No focal nor epileptiform features are seen. Normal EEG does not rule out the diagnostic possibility of epilepsy. Clinical correlation is suggested.
--- NOTE | 2017-04-24 20:13 | ECHO Report ---
Janeth Monson Exam Date: 04/24/2017 08:24 Referring Physician: Technologist: maliha Betancourt ARDMS, RVT Age: 51 Ht (in): 68 Wt (lb): 204 Gender: M Exam Location: [facility] Echo Indications: Essential (primary) hypertension, Syncope and collapse, Heart transplant, Renal transplant, DM BP: 147 / 80 HR: 87 Rhythm: Sinus Technical Quality: Good IMPRESSIONS Left ventricular ejection fraction is estimated at 60 %. Moderate LVH. No significant valvular heart disease MEASUREMENTS (Male / Female) Normal Values 2D ECHO LV Diastolic Diameter PLAX 4.8 cm 4.2 - 5.9 / 3.9 - 5.3 cm LV Systolic Diameter PLAX 2.9 cm LV Fractional Shortening PLAX 40.3 % IVS Diastolic Thickness 1.1 cm 0.6 - 1.0 / 0.6 - 0.9 cm LVPW Diastolic Thickness 1.0 cm 0.6 - 1.0 / 0.6 - 0.9 cm RV Internal Dim ED PLAX 3.4 cm Aortic Root Diameter 3.5 cm LA Systolic Diameter LX 4.0 cm 3.0 - 4.0 / 2.7 - 3.8 cm FINDINGS Left Ventricle Normal left ventricular cavity size. Moderate LVH. Left ventricular ejection fraction is estimated at 60 %. Right Ventricle The right ventricle is normal in size and function. Right Atrium The right atrium is normal in size. Left Atrium The left atrium is normal in size. Mitral Valve Morphologically normal mitral valve without significant stenosis or prolapse. There is no mitral regurgitation. Aortic Valve Morphologically normal aortic valve without significant sclerosis or stenosis. There is no aortic regurgitation. Tricuspid Valve Morphologically normal tricuspid valve without significant stenosis or regurgitation. Pulmonary artery systolic pressure is normal. Pulmonic Valve Morphologically normal pulmonic valve without significant stenosis. There is no pulmonic regurgitation. Pericardium Normal pericardium without effusion. Aorta Normal ascending aorta dimension. Dwayne Guan MD (Electronically Signed) Final Date: 24 April 2017 20:12
[2017-04-24] MEDS ORDERED: CETIRIZINE 10 MG TABLET PO SCH (21:00)
[2017-04-24] MEDS: ATORVASTATIN 40 MG TABLET PO SCH (22:32)
[2017-04-25] MEDS: INSULIN GLARGINE 100 UNIT/ML SUBCUT SCH (02:51)
[2017-04-25] MEDS: INSULIN LISPRO 100 UNIT/ML SUBCUT SCH ×2 (08:59→12:41)
[2017-04-25] MEDS: MYCOPHENOLATE MOFETIL 250 MG CAPSULE PO SCH (08:59)
[2017-04-25] MEDS: ASPIRIN CHEW 81 MG TABLET PO SCH (08:59)
[2017-04-25] MEDS: TACROLIMUS 0.5 MG CAPSULE PO SCH (08:59)
[2017-04-25] MEDS: CALCIUM CARBONATE CHEW 500 MG TABLET PO SCH (09:00)
[2017-04-25] MEDS: CARVEDILOL 25 MG TABLET PO SCH (09:00)
[2017-04-25] MEDS: levETIRAcetam 250 MG TABLET PO SCH (09:00)
[2017-04-25] MEDS: MAGNESIUM CHLORIDE 64 MG TABLET PO SCH (09:00)
[2017-04-25] MEDS: SILDENAFIL 20 MG TABLET PO SCH (09:00)
[2017-04-25] MEDS: predniSONE 10 MG TABLET PO SCH (09:01)
[2017-04-25] MEDS: DILTIAZEM CD 180 MG CAPSULE PO SCH (09:03)
[2017-04-25] MEDS: HEPARIN 5,000 UNIT/1 ML VIAL SUBCUT SCH (09:03)
--- NOTE | 2017-04-25 09:58 | Discharge Summary ---
<Roxanne Cervantesda - Last Filed: 04/25/17 09:48> Hospital Course - Hospital Course Hospital Course: This is a 51-year-old male that presented to the ED at [facility] on the night of April 22, 2017 for the evaluation of syncope. Patient has a medical history significant for hypertension, insulin-dependent diabetes, end-stage renal disease, and cardiovascular disease. Patient has a surgical history significant for heart transplantation in 2010, and right kidney transplant in 2010. Patient reported the onset of symptoms shortly prior to presentation. 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 His family was present in the car reported that the patient started to shake all over however it only lasted momentarily. In addition, the patient reported feeling lightheaded and shortness of breath shortly after the episode; however denied any chest pain or discomfort. The patient also reported no changes in his daily activities however after experiencing the syncopal episode, he felt an overwhelming urge to defecate. His family stopped at [facility] and the patient had a large bowel movement. The patient also reported diarrhea 1 day prior to presentation that was accompanied with vomiting. The patient reported that he had an episode similar in nature in October earlier this year however, reported that today's episode was worse. The patient was seen and assessed at the time of ED presentation. Labs were obtained which were significant for hemoglobin 12.9, hematocrit 39.2, sodium 133 , BUN 41, creatinine 1.0, glucose 444, BNP 105. Urinalysis was essentially unremarkable and serum alcohol level was less than 15. Chest x-ray was essentially unremarkable. Orthostatic vital signs were obtained which were unremarkable. Due to the severity of the patient's presenting symptoms and complex comorbidities, the patient was subsequently admitted to the hospitalist service for continuation of care. A full cardiovascular workup was performed. MRI of the brain without contrast was performed on April 23, 2017 which was significant for acute and chronic inflammatory changes within the bilateral maxillary sinuses. A cardiology consultation was requested. The patient was evaluated and recommendations were given. Echocardiogram on April 23, 2017 significant for left ventricular ejection fraction at 60% and moderate left ventricular hypertrophy however no significant valvular disease was noted to a neurology consultation was requested. The patient was evaluated in recommendations were given. The patient was started on antiseizure medications prophylactically. On April, electroencephalogram was ordered which was essentially unremarkable. The patient's condition gradually improved The patient's condition is stable. He has not experienced any significant overnight events. Today, we feel that he is indeed appropriate for discharge to follow-up with his primary care physician, farm contractor, and neurologist as indicated. The patient will continue Keppra 250 mg 3 times daily and will follow up with Dr. Nashin 1 month. Specialty Discharge - Follow Up or Referrals Follow up with: [facility], transplant [Other] (as before ) Sherman Dejesus MD [Physician] - 05/23/17 10:15 am (Bring with you Liscense, Insurance Cards, and Medications. ) Discharge Plan - Discharge Data Disposition: Disch To Home/Self Care - Discharge Medications New levETIRAcetam TAB [Keppra Tab] 250 mg PO TID #90 tablet Continue Sildenafil [Revatio] 20 mg PO TID Insulin Glargine [Lantus] 1 unit SUBCUT AC predniSONE TAB [PredniSONE] 10 mg PO DAILY Mycophenolate Mofetil Cap [Cellcept] 500 mg PO BID hydrALAZINE TAB [Apresoline Tab] 100 mg PO TID Cetirizine Tab [ZyrTEC Tab] 10 mg PO DAILY Calcium Carbonate [Calcium Carbonate Chew Tab] 1,000 mg PO BID Aspirin 81 mg PO DAILY Insulin Detemir [Levemir] 40 unit SUBCUT BEDTIME Atorvastatin [Lipitor] 40 mg PO BEDTIME Magnesium Chloride [Slow Mag] 64 mg PO TID Carvedilol 25 mg PO BID W/MEALS Tacrolimus Cap [Prograf Cap] 1 mg PO BID dilTIAZem HCl [Cartia XT] 180 mg PO DAILY - Follow Up or Referral Follow Up: [facility], transplant [Other] (as before ) Sherman Dejesus MD [Physician] - 05/23/17 10:15 am (Bring with you L[employer], Insurance Cards, and Medications. ) - Forms/Instructions Instructions: Heart Healthy Diet (DC), Syncope (DC) Exam - Constitutional Vitals: Period Temp Pulse Resp BP Sys/Marin Pulse Ox Last 24 Hr 97.5 F-98.8 F 83-89 18-20 114-201/61-109 92-98 Discharge Results Labs on day of discharge: Labs from last 24 hours 04/25/17 04/24/17 04/24/17 07:48 20:31 16:34 POC Glucose 276 H 325 H 356 H 04/24/17 04/24/17 11:52 11:19 POC Glucose 106 38 L* DS: Provider Date of admission: 04/22/17 21:11 Primary care physician: . No PCP Attending physician on admission: Vu Staples MD Consults: 04/22/17 21:41 Consult to Physician [CONS] Routine Comment: On-call physician/recurrent syncope/immunosuppress Consulting Provider: Sherman Dejesus Consult to Specialist Group: Neurology When should Consulting Provider be notified: In am Person Notified: Dr Dejesus Date Notified: 04/23/17 Time Notified: 08:50 Consult Notification Comment: office needs to to be notified due to holiday. Dr Dejesus paged and returned call. 04/22/17 23:04 Consult to [facility], Educator [CONS] Routine Reason for Bank Guard: Diabetes Education 04/23/17 07:30 Consult to Physician [CONS] Routine Comment: Consulting Provider: Cardiology - [facility] When should Consulting Provider be notified: Now Person Notified: [facility] CHANNEL PROCESS PLANT OPERATOR PAGED DR MARK Date Notified: 04/23/17 Time Notified: 08:55 Consult Notification Comment: [facility] CHANNEL PROCESS PLANT OPERATOR PAGED DR MARK AND MESSAGE LEFT ON TELEMETRY THAT A CONSULT WAS PLACED. 04/25/17 10:13 Consult to [facility], Educator [CONS] Routine Reason for Bank Guard: Re-education Consult Comment: he has some questions before discharge Discharging clinician: Shital Cervantes CNP <Gita Wood - Last Filed: 04/25/17 14:26> Diagnosis - Discharge Diagnosis (1) Syncope Status: Acute (2) Heart transplant status Status: Chronic (3) Renal transplant, status post Status: Chronic (4) Diabetes mellitus type 2 in obese Status: Chronic (5) DVT prophylaxis Status: Acute Discharge Plan - Discharge Data Condition at Discharge: Stable Discharge Diet: diabetic diet, heart healthy Activity: resume usual activities as tolerated
[2017-04-25 12:39] VITALS: BP 134/89
[2017-04-25] MEDS: CETIRIZINE 10 MG TABLET PO SCH (13:00)
--- NOTE | 2017-04-25 19:56 | Cardiology Progress Note ---
I, Shannan Patten RN, am scribing for, and in the presence of, Dwayne Guan MD 19:55. Assessment and Plan (1) Syncope Status: Acute Assessment and plan: Initial assessment and plan April 24, 2017: No obvious cause of syncope so far MRI was negative EEG has been done and pending. Echo has been done and pending Monitor shows no arrhythmia We will have patient ambulate some with assistance and sitting up in a chair If neurological workup is negative and no obvious cardiac cause could let him go home and follow with [facility] where they could do further testing or evaluation based on their knowledge of him and he has known cardiac and renal transplant. Assessment and plan April 25, 2017: I reviewed the EEG-negative I reviewed the monitoring-no arrhythmia Dr. Gladys Dejesus is leaning towards syncopal episodes being seizure. We will continue the Keppra No obvious cardiac cause Echo was okay He will be discharged and will follow-up at [facility]. 1 of our cardiologists at [facility] can be available as needed Thank you for allowing me to participate in this patient's care (2) Status post heart transplant Status: Chronic (3) Diabetes mellitus type 2 in obese Status: Chronic (4) Hypertension Status: Chronic (5) Renal transplant, status post Status: Chronic Cardiology - PN: Subj Interval history: Package Winder: [facility] transplant team Summary: Mr. Monson is a 51 year old male with a history of heart and kidney transplant. Patient does not see a save all operator locally, but follows up with [facility] transplant team twice a year with an echocardiogram, EKG, and right heart cath yearly. Patient was last seen at [facility] in 01/2017, no records are available. Past surgical history is significant for heart transplant and kidney transplant in 2010. Past medical history significant for hypertension, immunosuppression therapy, and diabetes. Cardiac risk factors significant for obesity, hypertension, diabetes, and dyslipidemia. Patient presented to the emergency room April 22 after possible syncopal episode while driving. He denies chest pain with the episode, he did report some shortness of breath immediately post episode. The patient reports that he has had an episode like this in the more recent past, he reports he was seen at this hospital for this episode, however I am unable to find previous records confirming this. EKG shows sinus rhythm, rate in the 80s. Chest x-ray shows no acute cardiopulmonary findings. April 24, 2017: Mr. Monson is seen on 4 E. this morning, he has just returned from having EEG. He denies any chest pain or shortness of breath. He denies having any further episodes of syncope or near syncope. MRI of the brain done yesterday did not show any acute findings. monitoring engineer currently shows sinus rhythm with heart rates in the 90s. Diltiazem has been added to his medical regimen, his blood pressures have improved. Pressure this morning 138/ 82. Creatinine is improved this morning to 1.4. An echocardiogram has been ordered. April 25, 2017: Mr. Monson is pleasant and reports he feels much better this morning. He denies any chest pain, shortness of breath, palpitations, or syncope or near syncope. monitoring engineer currently shows sinus rhythm heart rates in the 90s. Echocardiogram done with ejection fraction of 60% and no significant valvular heart disease. Vital signs been stable throughout the night. According Dr. Dejesus's note, EEG was within normal limits. Mr. Monson is hoping to go home today. Exam (Progress Note) - Constitutional Vitals: Period Temp Pulse Resp BP Sys/Marin Pulse Ox Last 24 Hr 97.5 F-98.8 F 83-89 18-20 114-201/61-109 92-98 Exam: General appearance: no acute distress, over weight - Head Head exam: Absent: abrasion, hematoma - Eye Eye exam: Absent: periorbital swelling, laceration to eyelids Pupils: Present: NICOLAS - Neck Neck exam: Absent: lymphadenopathy, tenderness - Respiratory Respiratory exam: Present: clear to auscultation bilaterally. Absent: accessory muscle use, chest wall tenderness - Cardiovascular Cardiovascular exam: Present: regular rate and rhythm. Absent: systolic murmur - GI/Abdominal GI/Abdominal exam: Present: normal bowel sounds, soft. Absent: distended, tenderness - Extremities Exam Extremities exam: Absent: calf tenderness, edema - Neurological Exam Neurological exam: Present: alert, oriented X3 - Psychiatric Psychiatric exam: Present: normal affect, normal mood - Skin Skin exam: Present: warm, dry Result/EKG - Labs CBC & BMP: 04/24/17 05:05 04/24/17 05:05 Lab Results: I have reviewed the past 24 hour labs Labs: Laboratory Results - last 24 hr 04/24/17 04/24/17 04/24/17 11:19 11:52 16:34 POC Glucose 38 L* 106 356 H 04/24/17 04/25/17 20:31 07:48 POC Glucose 325 H 276 H - Diagnostic Findings Procedure: Chest x-ray: report reviewed by me - EKG EKG results: interpreted by me EKG shows: sinus rhythm Specialty Discharge - Follow Up or Referrals Follow up with: [facility], transplant [Other] (as before ) Sherman Dejesus MD [Physician] - 05/23/17 10:15 am (Bring with you Liscense, Insurance Cards, and Medications. ) I, Dwayne Guan MD, personally performed the services described in this documentation, ascribed by Shannan Patten RN in my presence, and it is both accurate and complete 955 .
== END 2017-04-25 13:04 | disposition home or self-care (01) ==
LOC: N.EDINP 18:07 → N.ED 18:07 → SUATTDRO 21:11 → N.4E 22:29
PROVIDERS: ADMIT Internal Medicine Infectious Disease; ATTEND Internal Medicine

== ENCOUNTER 2018-06-03 08:09 | Observation (INO) ==
[2018-06-03] MEDS ORDERED: ASPIRIN 325 MG TABLET PO STA (08:23)
[2018-06-03] MEDS ORDERED: METOPROLOL TARTRATE 5 MG/5 ML VIAL IV STA (08:38)
[2018-06-03 09:01] LABS: Basophils % 0.2 % (0.0-0.8); Eosinophils % 0.4 % (0.00-10.9); Hematocrit 39.1 VOL% (42.0-52.0); Hemoglobin 12.5 GM/DL (14.0-18.0); Immature Granulocytes % 0.5 %; Immature Granulocytes Absolute 0.03 #; Lymphocytes # 0.8 10*3/uL (1.4-4.0); Lymphocytes % 13.6 % (21.2-54.2); Mean Corpuscular Hemoglobin 27 PG (27-34); Mean Corpuscular Volume 83.7 FL (87-102); Mean Platelet Volume 12.4 FL (9.6-12.0); Monocytes # 0.4 10*3/uL (0.11-0.8); Monocytes % 6.3 % (1.7-12.7); Neutrophils # 4.4 10*3/uL (1.4-7.4); Platelet Count 304 T/CUMM (130-400); Red Blood Count 4.67 MC/CUMM (3.8-5.5); Red Cell Distribution Width 13.2 % (9.3-17.3); White Blood Count 5.5 T/CUMM (4-12)
[2018-06-03] MEDS ORDERED: HYDROmorphone 2 MG/1 ML VIAL IV STA (09:25)
[2018-06-03] MEDS ORDERED: ONDANSETRON 4 MG/2 ML VIAL ONE (09:28)
[2018-06-03] MEDS ORDERED: ONDANSETRON 4 MG/2 ML VIAL IV STA (09:33)
[2018-06-03 10:46] LABS: Bilirubin,Total 0.4 MG/DL (0.2-1.0); Calcium 9.4 MG/DL (8.5-10.1); Potassium 5.6 MMOL/L (3.5-5.1); Total Protein 7.2 G/DL (6.4-8.3)
[2018-06-03] MEDS ORDERED: GLUCAGON 1 MG VIAL IM PRN (11:46)
[2018-06-03] MEDS ORDERED: INSULIN LISPRO 100 UNIT/ML SUBCUT PRN (11:50)
[2018-06-03 12:25] LABS: Thyroid Stimulating Hormone 1.27 uIU/ml (0.358-3.74)
[2018-06-03 12:31] LABS: Apearance,Urine CLEAR (Clear); Bilirubin,Urine Negative (Negative); Blood, Urine Negative (Negative); Glucose,Urine (UA) >=500 mg/dL (Negative); Hyaline Casts,Urine 3 /LPF (0-3); Ketones,Urine 5 mg/dL (Negative); Nitrite,Urine Negative (Negative); Protein,Urine Negative; Squamous Epithelial Cell,Urine Occasional /HPF (0-10); Urine Color Straw (Yellow); Urine Urobilinogen < 2.0 EU/DL (0.2-1.0); WBC,Urine <1 /HPF (0-6)
[2018-06-03 12:36] LABS: Barbiturates Screen,Urine Negative (Negative); Benzodiazepines Screen,Urine Negative (Negative); Cannabinoid Screen,Urine Negative (Negative); Opiate Screen,Urine Negative (Negative); Phencyclidine Screen,Urine Negative (Negative)
[2018-06-03] MEDS: levETIRAcetam 250 MG TABLET PO SCH ×2 (15:09→20:59)
[2018-06-03] MEDS: SODIUM CHLORIDE 0.9% 1,000 ML IV SCH (15:09)
[2018-06-03] MEDS: SILDENAFIL 20 MG TABLET PO SCH ×2 (15:10→20:59)
[2018-06-03] MEDS: MAGNESIUM CHLORIDE 64 MG TABLET PO SCH ×2 (15:10→20:58)
[2018-06-03] MEDS: INSULIN REGULAR 100 UNIT/ML SUBCUT SCH ×2 (17:04→21:04)
[2018-06-03] MEDS: CARVEDILOL 25 MG TABLET PO SCH (17:06)
[2018-06-03] MEDS: CALCIUM CARBONATE CHEW 500 MG TABLET PO SCH (20:58)
[2018-06-03] MEDS: TACROLIMUS 0.5 MG CAPSULE PO SCH (20:58)
[2018-06-03] MEDS: MYCOPHENOLATE MOFETIL 250 MG CAPSULE PO SCH (20:58)
[2018-06-03] MEDS: ATORVASTATIN 40 MG TABLET PO SCH (20:59)
[2018-06-03] MEDS: ENOXAPARIN 40 MG/0.4 ML SYRINGE SUBCUT SCH (20:59)
[2018-06-03] MEDS ORDERED: INSULIN GLARGINE 100 UNIT/ML SUBCUT SCH ×2 (21:00)
[2018-06-03] MEDS ORDERED: SODIUM POLYSTYRENE SULFATE 15 GM/60 ML BOTTLE PO ONE (22:07)
[2018-06-03] MEDS ORDERED: INSULIN REGULAR 100 UNIT/ML IV ONE (22:49)
[2018-06-04] MEDS: DEXTROSE 50% 25 GM/50 ML VIAL IV PRN ×2 (03:07→16:34)
[2018-06-04 06:42] LABS: Basophils % 0.2 % (0.0-0.8); Eosinophils # 0.1 10*3/uL (0.0-0.87); Eosinophils % 1.8 % (0.00-10.9); Hematocrit 37.3 VOL% (42.0-52.0); Hemoglobin 11.5 GM/DL (14.0-18.0); Immature Granulocytes % 0.2 %; Immature Granulocytes Absolute 0.01 #; Lymphocytes # 1.2 10*3/uL (1.4-4.0); Lymphocytes % 24.3 % (21.2-54.2); Mean Corpuscular HGB Conc 30.8 GM/DL (32-36); Mean Corpuscular Hemoglobin 26 PG (27-34); Mean Corpuscular Volume 85.2 FL (87-102); Mean Platelet Volume 11.7 FL (9.6-12.0); Monocytes # 0.6 10*3/uL (0.11-0.8); Monocytes % 12.3 % (1.7-12.7); Neutrophils # 3.1 10*3/uL (1.4-7.4); Neutrophils % 61.2 % (38.7-73.9); Platelet Count 297 T/CUMM (130-400); Red Blood Count 4.38 MC/CUMM (3.8-5.5); Red Cell Distribution Width 13.1 % (9.3-17.3)
[2018-06-04 07:10] LABS: Osmolality,Calculated 290.3 MOS/KG (273-304); Potassium 3.9 MMOL/L (3.5-5.1)
[2018-06-04 07:14] LABS: Troponin I < 0.015 NG/ML (0.00-0.045)
[2018-06-04 07:14] LABS: Albumin 3.5 G/DL (3.4-5.0); Bilirubin,Total 0.5 MG/DL (0.2-1.0); Osmolality,Calculated 290.3 MOS/KG (273-304); Potassium 3.9 MMOL/L (3.5-5.1); Risk Ratio 1.73; Total Protein 6.8 G/DL (6.4-8.3)
[2018-06-04] MEDS ORDERED: PANTOPRAZOLE 40 MG TABLET PO SCH (09:00)
[2018-06-04] MEDS: CALCIUM CARBONATE CHEW 500 MG TABLET PO SCH ×2 (10:25→21:55)
[2018-06-04] MEDS: PANTOPRAZOLE 40 MG TABLET PO SCH (10:26)
[2018-06-04] MEDS: ASPIRIN CHEW 81 MG TABLET PO SCH (10:26)
[2018-06-04] MEDS: MAGNESIUM CHLORIDE 64 MG TABLET PO SCH ×3 (10:26→21:55)
[2018-06-04] MEDS: TACROLIMUS 0.5 MG CAPSULE PO SCH ×2 (10:27→21:56)
[2018-06-04] MEDS: CARVEDILOL 25 MG TABLET PO SCH ×2 (10:28→16:59)
[2018-06-04] MEDS: MYCOPHENOLATE MOFETIL 250 MG CAPSULE PO SCH ×2 (10:28→21:56)
[2018-06-04] MEDS: CETIRIZINE 10 MG TABLET PO SCH (10:28)
[2018-06-04] MEDS: levETIRAcetam 250 MG TABLET PO SCH ×3 (10:29→21:56)
[2018-06-04] MEDS: DILTIAZEM CD 180 MG CAPSULE PO SCH (10:29)
[2018-06-04] MEDS: SILDENAFIL 20 MG TABLET PO SCH ×3 (10:29→21:56)
[2018-06-04] MEDS: predniSONE 10 MG TABLET PO SCH (10:29)
[2018-06-04] MEDS: LISINOPRIL 5 MG TABLET PO SCH (10:29)
[2018-06-04] MEDS: SODIUM CHLORIDE 0.9% 1,000 ML IV SCH (10:30)
[2018-06-04] MEDS: INSULIN REGULAR 100 UNIT/ML SUBCUT SCH ×4 (10:31→21:56)
[2018-06-04] MEDS ORDERED: INSULIN GLARGINE 100 UNIT/ML SUBCUT SCH ×2 (11:38→14:18)
[2018-06-04] MEDS: INSULIN LISPRO 100 UNIT/ML SUBCUT SCH ×2 (12:48→16:58)
[2018-06-04] MEDS: ATORVASTATIN 40 MG TABLET PO SCH (21:56)
[2018-06-04] MEDS: ENOXAPARIN 40 MG/0.4 ML SYRINGE SUBCUT SCH (21:57)
[2018-06-05] MEDS: SODIUM CHLORIDE 0.9% 1,000 ML IV SCH (04:57)
[2018-06-05 06:58] LABS: Calcium 8.4 MG/DL (8.5-10.1); Osmolality,Calculated 294.3 MOS/KG (273-304); Potassium 4.5 MMOL/L (3.5-5.1)
[2018-06-05] MEDS: INSULIN LISPRO 100 UNIT/ML SUBCUT SCH ×2 (08:36→11:56)
[2018-06-05] MEDS: INSULIN REGULAR 100 UNIT/ML SUBCUT SCH ×2 (08:37→11:56)
[2018-06-05] MEDS: TACROLIMUS 0.5 MG CAPSULE PO SCH (08:38)
[2018-06-05] MEDS: MAGNESIUM CHLORIDE 64 MG TABLET PO SCH (08:39)
[2018-06-05] MEDS: MYCOPHENOLATE MOFETIL 250 MG CAPSULE PO SCH (08:40)
[2018-06-05] MEDS: SILDENAFIL 20 MG TABLET PO SCH (08:40)
[2018-06-05] MEDS: CALCIUM CARBONATE CHEW 500 MG TABLET PO SCH (08:40)
[2018-06-05] MEDS: CETIRIZINE 10 MG TABLET PO SCH (08:40)
[2018-06-05] MEDS: LISINOPRIL 5 MG TABLET PO SCH (08:40)
[2018-06-05] MEDS: CARVEDILOL 25 MG TABLET PO SCH (08:41)
[2018-06-05] MEDS: ASPIRIN CHEW 81 MG TABLET PO SCH (08:41)
[2018-06-05] MEDS: PANTOPRAZOLE 40 MG TABLET PO SCH (08:41)
[2018-06-05] MEDS: levETIRAcetam 250 MG TABLET PO SCH (08:41)
[2018-06-05] MEDS: predniSONE 10 MG TABLET PO SCH (08:41)
[2018-06-05] MEDS: DILTIAZEM CD 180 MG CAPSULE PO SCH (08:47)
[2018-06-05 12:13] VITALS: BP 129/74
== END 2018-06-05 12:45 | disposition home health service (06) ==
LOC: N.ED 08:09 → N.EDINP 08:09 → N.2W 12:09 → N.TELEN 14:13
PROVIDERS: ADMIT Hospitalist; ATTEND Hospitalist

== ENCOUNTER 2021-10-14 15:30 | Inpatient (IN) ==
[2021-10-14 18:03] LABS: Basophils % 0.1 % (0.0-0.8); Eosinophils % 0.1 % (0.00-10.9); Hematocrit 33.2 VOL% (42.0-52.0); Hemoglobin 10.5 GM/DL (14.0-18.0); Immature Granulocytes % 0.6 %; Immature Granulocytes Absolute 0.04 #; Lymphocytes # 0.7 10*3/uL (1.4-4.0); Lymphocytes % 9.3 % (21.2-54.2); Mean Corpuscular HGB Conc 31.6 GM/DL (32-36); Mean Corpuscular Volume 83.4 FL (87-102); Monocytes % 8.1 % (1.7-12.7); Neutrophils % 81.8 % (38.7-73.9); Platelet Count 334 T/CUMM (130-400); Red Blood Count 3.98 MC/CUMM (3.8-5.5); White Blood Count 7.1 T/CUMM (4-12)
[2021-10-14 18:33] LABS: Albumin 3.1 G/DL (3.4-5.0); Bilirubin,Total 0.8 MG/DL (0.20-1.00); Calcium 9.4 MG/DL (8.5-10.1); Osmolality,Calculated 285.5 MOS/KG (273-304); Potassium 5.1 MMOL/L (3.5-5.1); Total Protein 7.2 G/DL (6.4-8.2)
[2021-10-14] MEDS ORDERED: CLINDAMYCIN INJ 600 MG/50 ML PREMIX IV STA (18:54)
[2021-10-14] MEDS ORDERED: VANCOMYCIN INJ 1,000 MG in SODIUM CHLORIDE 0.9% 250 ML IV STA (18:54)
[2021-10-14] MEDS ORDERED: hydrALAZINE 20 MG/1 ML VIAL IV PRN (20:02)
[2021-10-14] MEDS ORDERED: guaiFENesin/DM ER 600-30 MG TABLET PO PRN (20:02)
[2021-10-14] MEDS ORDERED: MORPHINE 4 MG/1 ML VIAL IV PRN (20:02)
[2021-10-14] MEDS ORDERED: GLUCAGON 1 MG VIAL IM PRN (20:02)
[2021-10-14] MEDS ORDERED: ONDANSETRON 4 MG/2 ML VIAL IV PRN (20:02)
[2021-10-14] MEDS ORDERED: DEXTROSE 10% 250 ML BAG IV PRN (20:08)
[2021-10-14] MEDS: ACETAMINOPHEN 325 MG TABLET PO PRN (20:33)
[2021-10-14] MEDS: HEPARIN 5,000 UNIT/1 ML VIAL SUBCUT SCH (21:51)
[2021-10-14] MEDS ORDERED: VANCOMYCIN INJ 1,000 MG in SODIUM CHLORIDE 0.9% 250 ML IV ONE (22:00)
[2021-10-14] MEDS: INSULIN REGULAR 100 UNIT/ML SUBCUT SCH (22:17)
[2021-10-14 22:21] LABS: Hyaline Casts,Urine 7 /LPF (0-3); Mucus,Urine Occasional /LPF (Occasional); RBC,Urine <1 /HPF (0-4); Squamous Epithelial Cell,Urine Occasional /HPF (0-10)
[2021-10-14 22:23] LABS: Bilirubin,Urine Negative (Negative); Blood, Urine Negative (Negative); Glucose,Urine (UA) Negative (Negative); Ketones,Urine Trace mg/dL (Negative); Nitrite,Urine Negative (Negative); Protein,Urine Negative; Urine Appearance Clear (Clear); Urine Color Yellow (Yellow); Urine Urobilinogen 0.2 EU/DL (<2.0); Urine pH 5.5 (4.5-8.0)
[2021-10-14] MEDS: MEROPENEM 500 MG in SODIUM CHLORIDE 0.9% 100 ML IV SCH (23:11)
[2021-10-14] MEDS: SODIUM CHLORIDE 0.9% 1,000 ML IV SCH (23:12)
[2021-10-15] MEDS: MEROPENEM 500 MG in SODIUM CHLORIDE 0.9% 100 ML IV SCH ×3 (05:48→17:18)
[2021-10-15 07:43] LABS: Basophils % 0.3 % (0.0-0.8); Eosinophils % 0.4 % (0.00-10.9); Hematocrit 31.5 VOL% (42.0-52.0); Hemoglobin 9.9 GM/DL (14.0-18.0); Immature Granulocytes % 0.6 %; Immature Granulocytes Absolute 0.04 #; Lymphocytes # 0.9 10*3/uL (1.4-4.0); Lymphocytes % 12.5 % (21.2-54.2); Mean Corpuscular HGB Conc 31.4 GM/DL (32-36); Mean Corpuscular Volume 83.8 FL (87-102); Mean Platelet Volume 11.9 FL (9.6-12.0); Monocytes % 12.6 % (1.7-12.7); Neutrophils % 73.6 % (38.7-73.9); Platelet Count 341 T/CUMM (130-400); Red Blood Count 3.76 MC/CUMM (3.8-5.5); White Blood Count 7.1 T/CUMM (4-12)
[2021-10-15 07:54] LABS: Albumin 2.7 G/DL (3.4-5.0); Bilirubin,Total 0.7 MG/DL (0.20-1.00); Calcium 9.1 MG/DL (8.5-10.1); Osmolality,Calculated 286.4 MOS/KG (273-304); Potassium 4.7 MMOL/L (3.5-5.1); Risk Ratio 2.1; Total Protein 6.6 G/DL (6.4-8.2); VLDL Cholesterol 35.6 MG/DL
[2021-10-15] MEDS: INSULIN REGULAR 100 UNIT/ML SUBCUT SCH ×4 (08:04→21:10)
[2021-10-15] MEDS: SODIUM CHLORIDE 0.9% 1,000 ML IV SCH (08:05)
[2021-10-15] MEDS: HEPARIN 5,000 UNIT/1 ML VIAL SUBCUT SCH ×2 (08:05→21:10)
[2021-10-15] MEDS: ACETAMINOPHEN 325 MG TABLET PO PRN ×2 (08:05→11:35)
[2021-10-15] MEDS: PANTOPRAZOLE 40 MG TABLET PO SCH (08:05)
[2021-10-15] MEDS: levETIRAcetam 250 MG TABLET PO SCH ×2 (14:32→21:15)
[2021-10-15] MEDS ORDERED: SODIUM CHLORIDE 0.9% 1,000 ML IV SCH (15:37)
[2021-10-15] MEDS: carvediloL 25 MG TABLET PO SCH (17:18)
[2021-10-15] MEDS: INSULIN GLARGINE 100 UNIT/ML SUBCUT SCH (21:10)
[2021-10-15] MEDS: ATORVASTATIN 40 MG TABLET PO SCH (21:15)
[2021-10-15] MEDS: VANCOMYCIN INJ 1,500 MG in SODIUM CHLORIDE 0.9% 500 ML IV SCH (22:14)
[2021-10-16] MEDS: MEROPENEM 500 MG in SODIUM CHLORIDE 0.9% 100 ML IV SCH ×4 (01:01→22:31)
[2021-10-16] MEDS ORDERED: fentaNYL 100 MCG/2 ML VIAL ONE (06:52)
[2021-10-16] MEDS ORDERED: DEXMEDETOMIDINE 200 MCG/2 ML VIAL ONE (06:52)
[2021-10-16] MEDS ORDERED: ETOMIDATE 40 MG/20 ML VIAL IV ONE (06:52)
[2021-10-16] MEDS ORDERED: MIDAZOLAM 2 MG/2 ML VIAL ONE (06:53)
[2021-10-16] MEDS ORDERED: MEPERIDINE 25 MG/1 ML VIAL IV PRN (07:11)
[2021-10-16] MEDS ORDERED: PROMETHAZINE INJ 25 MG in SODIUM CHLORIDE 0.9% 50 ML IV PRN (07:11)
[2021-10-16] MEDS ORDERED: diphenhydrAMINE 50 MG/1 ML VIAL IV PRN (07:11)
[2021-10-16] MEDS ORDERED: ONDANSETRON 4 MG/2 ML VIAL IV PRN (07:11)
[2021-10-16] MEDS ORDERED: HYDROmorphone 2 MG/1 ML VIAL IV PRN (07:11)
[2021-10-16] MEDS ORDERED: BUPIVACAINE 0.5% 50 ML VIAL ONE (07:18)
[2021-10-16] MEDS ORDERED: LIDOCAINE 2% 20 ML VIAL ONE (07:18)
[2021-10-16] MEDS ORDERED: LIDOCAINE 50 MG/5 ML SYRINGE ONE (07:18)
[2021-10-16 07:22] LABS: Basophils % 0.3 % (0.0-0.8); Eosinophils # 0.1 10*3/uL (0.0-0.87); Hematocrit 30.6 VOL% (42.0-52.0); Hemoglobin 9.5 GM/DL (14.0-18.0); Immature Granulocytes % 0.4 %; Immature Granulocytes Absolute 0.03 #; Lymphocytes # 1.3 10*3/uL (1.4-4.0); Lymphocytes % 18.7 % (21.2-54.2); Mean Corpuscular Volume 84.1 FL (87-102); Mean Platelet Volume 11.8 FL (9.6-12.0); Monocytes % 12.4 % (1.7-12.7); Neutrophils % 67.2 % (38.7-73.9); Platelet Count 356 T/CUMM (130-400); Red Blood Count 3.64 MC/CUMM (3.8-5.5); Red Cell Distribution Width 14.1 % (9.3-17.3); White Blood Count 7.1 T/CUMM (4-12)
[2021-10-16 07:27] LABS: Calcium 9.2 MG/DL (8.5-10.1); Osmolality,Calculated 284.8 MOS/KG (273-304); Potassium 4.5 MMOL/L (3.5-5.1)
[2021-10-16 08:59] LABS: Lymphocytes 11 % (20-55); Segmented Neutrophils 82 % (50-85); Total Cells Counted 100
[2021-10-16 09:00] LABS: Burr Cells Few; Hypochromia 2+; Ovalocytes Few; Platelet Estimate Increased; Polychromasia Slight; Schistocytes Few; Spherocytes 1+; Target Cells Few
[2021-10-16] MEDS: INSULIN REGULAR 100 UNIT/ML SUBCUT SCH ×5 (10:36→20:37)
[2021-10-16] MEDS: carvediloL 25 MG TABLET PO SCH ×2 (10:37→17:57)
[2021-10-16] MEDS: levETIRAcetam 250 MG TABLET PO SCH ×3 (10:38→20:39)
[2021-10-16] MEDS: HEPARIN 5,000 UNIT/1 ML VIAL SUBCUT SCH ×2 (10:38→20:38)
[2021-10-16] MEDS: ASPIRIN CHEW 81 MG TABLET PO SCH (10:38)
[2021-10-16] MEDS: predniSONE 10 MG TABLET PO SCH (10:39)
[2021-10-16] MEDS: MYCOPHENOLATE SODIUM 360 MG PO SCH (10:39)
[2021-10-16] MEDS: TACROLIMUS 0.5 MG CAPSULE PO SCH (10:40)
[2021-10-16] MEDS: ASCORBIC ACID 500 MG TABLET PO SCH (10:40)
[2021-10-16] MEDS: PANTOPRAZOLE 40 MG TABLET PO SCH (10:41)
[2021-10-16] MEDS: INSULIN GLARGINE 100 UNIT/ML SUBCUT SCH (20:38)
[2021-10-16] MEDS: ATORVASTATIN 40 MG TABLET PO SCH (20:39)
[2021-10-17] MEDS: VANCOMYCIN INJ 1,500 MG in SODIUM CHLORIDE 0.9% 500 ML IV SCH (00:01)
[2021-10-17] MEDS: MEROPENEM 500 MG in SODIUM CHLORIDE 0.9% 100 ML IV SCH ×2 (04:05→09:28)
[2021-10-17 06:07] LABS: Basophils % 0.3 % (0.0-0.8); Eosinophils # 0.2 10*3/uL (0.0-0.87); Eosinophils % 2.2 % (0.00-10.9); Hematocrit 30.8 VOL% (42.0-52.0); Hemoglobin 9.6 GM/DL (14.0-18.0); Immature Granulocytes % 0.6 %; Immature Granulocytes Absolute 0.04 #; Lymphocytes # 1.5 10*3/uL (1.4-4.0); Lymphocytes % 21.7 % (21.2-54.2); Mean Corpuscular HGB Conc 31.2 GM/DL (32-36); Mean Corpuscular Volume 84.4 FL (87-102); Mean Platelet Volume 11.6 FL (9.6-12.0); Monocytes % 7.2 % (1.7-12.7); Platelet Count 402 T/CUMM (130-400); Red Blood Count 3.65 MC/CUMM (3.8-5.5); Red Cell Distribution Width 14.1 % (9.3-17.3); White Blood Count 6.8 T/CUMM (4-12)
[2021-10-17 06:32] LABS: Calcium 8.4 MG/DL (8.5-10.1); Osmolality,Calculated 280.5 MOS/KG (273-304); Potassium 4.4 MMOL/L (3.5-5.1)
[2021-10-17] MEDS: INSULIN REGULAR 100 UNIT/ML SUBCUT SCH ×4 (08:22→22:02)
[2021-10-17] MEDS: HEPARIN 5,000 UNIT/1 ML VIAL SUBCUT SCH ×2 (09:29→21:56)
[2021-10-17] MEDS: TACROLIMUS 0.5 MG CAPSULE PO SCH (09:29)
[2021-10-17] MEDS: ASPIRIN CHEW 81 MG TABLET PO SCH (09:29)
[2021-10-17] MEDS: carvediloL 25 MG TABLET PO SCH ×2 (09:29→16:13)
[2021-10-17] MEDS: PANTOPRAZOLE 40 MG TABLET PO SCH (09:29)
[2021-10-17] MEDS: predniSONE 10 MG TABLET PO SCH (09:29)
[2021-10-17] MEDS: ASCORBIC ACID 500 MG TABLET PO SCH (09:29)
[2021-10-17] MEDS: levETIRAcetam 250 MG TABLET PO SCH ×3 (09:29→21:56)
[2021-10-17] MEDS: MYCOPHENOLATE SODIUM 360 MG PO SCH (09:52)
[2021-10-17] MEDS ORDERED: cefTRIAXone 1,000 MG in SODIUM CHLORIDE 0.9% 100 ML IV SCH (15:00)
[2021-10-17] MEDS: INSULIN GLARGINE 100 UNIT/ML SUBCUT SCH (21:56)
[2021-10-17] MEDS: ATORVASTATIN 40 MG TABLET PO SCH (21:57)
[2021-10-18 05:52] LABS: Basophils % 0.6 % (0.0-0.8); Eosinophils # 0.2 10*3/uL (0.0-0.87); Eosinophils % 2.5 % (0.00-10.9); Hematocrit 32.5 VOL% (42.0-52.0); Hemoglobin 10.2 GM/DL (14.0-18.0); Immature Granulocytes % 0.9 %; Immature Granulocytes Absolute 0.06 #; Lymphocytes # 1.4 10*3/uL (1.4-4.0); Lymphocytes % 21.5 % (21.2-54.2); Mean Corpuscular HGB Conc 31.4 GM/DL (32-36); Mean Corpuscular Volume 82.9 FL (87-102); Mean Platelet Volume 11.5 FL (9.6-12.0); Monocytes % 7.6 % (1.7-12.7); Neutrophils % 66.9 % (38.7-73.9); Platelet Count 448 T/CUMM (130-400); Red Blood Count 3.92 MC/CUMM (3.8-5.5); White Blood Count 6.4 T/CUMM (4-12)
[2021-10-18 06:21] LABS: Calcium 9.1 MG/DL (8.5-10.1); Osmolality,Calculated 278.8 MOS/KG (273-304); Potassium 4.5 MMOL/L (3.5-5.1)
[2021-10-18] MEDS: INSULIN REGULAR 100 UNIT/ML SUBCUT SCH ×4 (08:17→21:03)
[2021-10-18] MEDS: PANTOPRAZOLE 40 MG TABLET PO SCH (08:47)
[2021-10-18] MEDS: ASCORBIC ACID 500 MG TABLET PO SCH (08:47)
[2021-10-18] MEDS: carvediloL 25 MG TABLET PO SCH ×2 (08:47→16:26)
[2021-10-18] MEDS: levETIRAcetam 250 MG TABLET PO SCH ×3 (08:47→21:03)
[2021-10-18] MEDS: predniSONE 10 MG TABLET PO SCH (08:48)
[2021-10-18] MEDS: ASPIRIN CHEW 81 MG TABLET PO SCH (08:48)
[2021-10-18] MEDS: HEPARIN 5,000 UNIT/1 ML VIAL SUBCUT SCH ×2 (08:48→21:01)
[2021-10-18] MEDS: TACROLIMUS 0.5 MG CAPSULE PO SCH (08:48)
[2021-10-18] MEDS: MYCOPHENOLATE SODIUM 360 MG PO SCH (08:48)
[2021-10-18] MEDS: amLODIPine 5 MG TABLET PO SCH (16:26)
[2021-10-18] MEDS: cefTRIAXone 2,000 MG in SODIUM CHLORIDE 0.9% 100 ML IV SCH (16:27)
[2021-10-18] MEDS: INSULIN GLARGINE 100 UNIT/ML SUBCUT SCH (21:01)
[2021-10-18] MEDS: ATORVASTATIN 40 MG TABLET PO SCH (21:03)
[2021-10-19] MEDS: PANTOPRAZOLE 40 MG TABLET PO SCH (08:47)
[2021-10-19] MEDS: predniSONE 10 MG TABLET PO SCH (08:47)
[2021-10-19] MEDS: INSULIN REGULAR 100 UNIT/ML SUBCUT SCH ×2 (08:47→12:23)
[2021-10-19] MEDS: ASPIRIN CHEW 81 MG TABLET PO SCH (08:48)
[2021-10-19] MEDS: ASCORBIC ACID 500 MG TABLET PO SCH (08:48)
[2021-10-19] MEDS: amLODIPine 5 MG TABLET PO SCH (08:48)
[2021-10-19] MEDS: TACROLIMUS 0.5 MG CAPSULE PO SCH (08:48)
[2021-10-19] MEDS: carvediloL 25 MG TABLET PO SCH (08:48)
[2021-10-19] MEDS: levETIRAcetam 250 MG TABLET PO SCH ×2 (08:48→13:30)
[2021-10-19] MEDS: MYCOPHENOLATE SODIUM 360 MG PO SCH (08:49)
[2021-10-19] MEDS: HEPARIN 5,000 UNIT/1 ML VIAL SUBCUT SCH (09:13)
[2021-10-19 12:04] VITALS: BP 152/78
[2021-10-19] MEDS: cefTRIAXone 2,000 MG in SODIUM CHLORIDE 0.9% 100 ML IV SCH (13:30)
== END 2021-10-19 15:57 | disposition home or self-care (01) | DRG 617 ==
LOC: N.ED 15:30 → SUATTDRO 20:00 → N.EDINP 20:00 → N.3E 22:59
PROVIDERS: ADMIT Internal Medicine; ATTEND Internal Medicine

== ENCOUNTER 2022-01-02 15:51 | Inpatient (IN) ==
[2022-01-02] MEDS ORDERED: SODIUM CHLORIDE 0.9% 500 ML IV STA (21:11)
[2022-01-02] MEDS ORDERED: ONDANSETRON 4 MG/2 ML VIAL IV STA (21:11)
[2022-01-02 21:53] LABS: Amorphous Crystals,Urine Occasional /HPF (Few); Bacteria,Urine Moderate /HPF (Few); Hyaline Casts,Urine 53 /LPF (0-3); Mucus,Urine Few /LPF (Occasional); Squamous Epithelial Cell,Urine Few /HPF (0-10); Urine Appearance Cloudy (Clear); Urine Color Yellow (Yellow); Urine Specific Gravity >= 1.030 (1.001-1.035)
[2022-01-02 21:54] LABS: Bilirubin,Urine Small mg/dL (Negative); Blood, Urine Negative (Negative); Glucose,Urine (UA) Negative (Negative); Ketones,Urine Trace mg/dL (Negative); Nitrite,Urine Negative (Negative); Protein,Urine 100 mg/dL (Negative); Urine Urobilinogen 0.2 eU/dL (<2.0)
[2022-01-02 21:55] LABS: Basophils % 0.1 % (0.0-0.8); Hemoglobin 12.5 GM/DL (14.0-18.0); Immature Granulocytes % 7.2 %; Immature Granulocytes Absolute 1.06 #; Lymphocytes # 0.9 10*3/uL (1.4-4.0); Lymphocytes % 5.8 % (21.2-54.2); Mean Corpuscular HGB Conc 32.1 GM/DL (32-36); Mean Corpuscular Volume 81.9 FL (87-102); Mean Platelet Volume 12.4 FL (9.6-12.0); Monocytes # 1.2 10*3/uL (0.11-0.8); Monocytes % 8.4 % (1.7-12.7); Neutrophils % 78.5 % (38.7-73.9); Platelet Count 250 T/CUMM (130-400); Red Blood Count 4.76 MC/CUMM (3.8-5.5); Red Cell Distribution Width 14.1 % (9.3-17.3); White Blood Count 14.7 T/CUMM (4-12)
[2022-01-02] MEDS ORDERED: cefTRIAXone 1,000 MG in SODIUM CHLORIDE 0.9% 100 ML IV STA (21:58)
[2022-01-02 22:20] LABS: Albumin 3.3 G/DL (3.4-5.0); Bilirubin,Total 1.1 MG/DL (0.20-1.00); Calcium 9.2 MG/DL (8.5-10.1); Osmolality,Calculated 292.5 MOS/KG (273-304); Potassium 5.3 MMOL/L (3.5-5.1); Total Protein 6.7 G/DL (6.4-8.2)
[2022-01-02 22:37] LABS: Lymphocytes 6 % (20-55); Platelet Estimate Adequate; Total Cells Counted 100
[2022-01-02] MEDS ORDERED: SODIUM CHLORIDE 0.9% 1,000 ML IV STA (23:12)
[2022-01-03] MEDS ORDERED: hydrALAZINE 20 MG/1 ML VIAL IV PRN (01:42)
[2022-01-03] MEDS ORDERED: GLUCAGON 1 MG VIAL IM PRN ×2 (01:42→12:02)
[2022-01-03] MEDS ORDERED: DEXTROSE 10% 250 ML BAG IV PRN (01:54)
[2022-01-03] MEDS: ONDANSETRON 4 MG/2 ML VIAL IV PRN (02:00)
[2022-01-03] MEDS: ENOXAPARIN 40 MG/0.4 ML SYRINGE SUBCUT SCH (02:39)
[2022-01-03] MEDS: SODIUM BICARB INJ 50 MEQ in SODIUM CHLORIDE 0.45% 1,000 ML IV SCH ×2 (03:17→15:31)
[2022-01-03 04:19] LABS: Basophils % 0.1 % (0.0-0.8); Eosinophils % 0.3 % (0.00-10.9); Hematocrit 38.5 VOL% (42.0-52.0); Hemoglobin 12.2 GM/DL (14.0-18.0); Immature Granulocytes % 3.4 %; Immature Granulocytes Absolute 0.46 #; Lymphocytes # 0.6 10*3/uL (1.4-4.0); Lymphocytes % 4.3 % (21.2-54.2); Mean Corpuscular HGB Conc 31.7 GM/DL (32-36); Mean Platelet Volume 12.5 FL (9.6-12.0); Monocytes # 0.8 10*3/uL (0.11-0.8); Monocytes % 5.6 % (1.7-12.7); Neutrophils % 86.3 % (38.7-73.9); Platelet Count 272 T/CUMM (130-400); Red Blood Count 4.64 MC/CUMM (3.8-5.5); Red Cell Distribution Width 14.2 % (9.3-17.3); White Blood Count 13.7 T/CUMM (4-12)
[2022-01-03 04:38] LABS: Calcium 9.1 MG/DL (8.5-10.1); Osmolality,Calculated 295.2 MOS/KG (273-304); Potassium 4.8 MMOL/L (3.5-5.1)
[2022-01-03] MEDS: INSULIN REGULAR 100 UNIT/ML SUBCUT SCH ×2 (09:00→16:48)
[2022-01-03] MEDS: PANTOPRAZOLE 40 MG TABLET PO SCH (09:02)
[2022-01-03] MEDS ORDERED: AMMONIUM LACTATE 12% CREAM 140 GM TUBE TOP PRN (11:15)
[2022-01-03] MEDS ORDERED: DEXTROSE 50% 25 GM/50 ML VIAL IV PRN (12:02)
[2022-01-03] MEDS: ASPIRIN CHEW 81 MG TABLET PO SCH (12:37)
[2022-01-03] MEDS: amLODIPine 5 MG TABLET PO SCH (12:37)
[2022-01-03] MEDS: levETIRAcetam 250 MG TABLET PO SCH ×2 (14:45→21:09)
[2022-01-03] MEDS: MAGNESIUM CHLORIDE 64 MG TABLET PO SCH ×2 (14:45→21:09)
[2022-01-03] MEDS: DILTIAZEM CD 180 MG CAPSULE PO SCH (14:45)
[2022-01-03] MEDS: predniSONE 10 MG TABLET PO SCH (14:45)
[2022-01-03] MEDS: ACETAMINOPHEN 325 MG TABLET PO PRN (15:21)
[2022-01-03] MEDS: FLUTICASONE 50 MCG NASAL SPRAY 16 GM BOTTLE BOTH NARES SCH (15:25)
[2022-01-03] MEDS: INSULIN LISPRO 100 UNIT/ML SUBCUT SCH ×3 (16:40→21:10)
[2022-01-03] MEDS: carvediloL 25 MG TABLET PO SCH (16:41)
[2022-01-03] MEDS: MEROPENEM 500 MG in SODIUM CHLORIDE 0.9% 100 ML IV SCH (16:42)
[2022-01-03] MEDS ORDERED: TOBRAMYCIN IV ONE (18:00)
[2022-01-03] MEDS ORDERED: SODIUM CHLORIDE 0.9% IV ONE (18:00)
[2022-01-03] MEDS ORDERED: cefTRIAXone 1,000 MG in SODIUM CHLORIDE 0.9% 100 ML IV SCH (21:00)
[2022-01-03] MEDS: ATORVASTATIN 40 MG TABLET PO SCH (21:09)
[2022-01-03] MEDS: CALCIUM (CARBONATE) 500 MG TABLET PO SCH (21:09)
[2022-01-03] MEDS: INSULIN GLARGINE 100 UNIT/ML SUBCUT SCH (21:10)
[2022-01-03] MEDS: MYCOPHENOLATE 180 MG TABLET PO SCH (21:10)
[2022-01-03] MEDS: TACROLIMUS 0.5 MG CAPSULE PO SCH (21:10)
[2022-01-04] MEDS: MEROPENEM 500 MG in SODIUM CHLORIDE 0.9% 100 ML IV SCH ×4 (02:01→21:26)
[2022-01-04] MEDS: ENOXAPARIN 40 MG/0.4 ML SYRINGE SUBCUT SCH (02:01)
[2022-01-04 05:43] LABS: Calcium 8.9 MG/DL (8.5-10.1); Osmolality,Calculated 284.4 MOS/KG (273-304); Potassium 4.7 MMOL/L (3.5-5.1)
[2022-01-04] MEDS: INSULIN LISPRO 100 UNIT/ML SUBCUT SCH ×6 (08:47→21:25)
[2022-01-04] MEDS: FLUTICASONE 50 MCG NASAL SPRAY 16 GM BOTTLE BOTH NARES SCH (09:17)
[2022-01-04] MEDS: TACROLIMUS 0.5 MG CAPSULE PO SCH ×2 (09:21→21:24)
[2022-01-04] MEDS: carvediloL 25 MG TABLET PO SCH ×2 (09:21→16:46)
[2022-01-04] MEDS: DILTIAZEM CD 180 MG CAPSULE PO SCH (09:21)
[2022-01-04] MEDS: ASPIRIN CHEW 81 MG TABLET PO SCH (09:21)
[2022-01-04] MEDS: amLODIPine 5 MG TABLET PO SCH (09:22)
[2022-01-04] MEDS: predniSONE 10 MG TABLET PO SCH (09:22)
[2022-01-04] MEDS: CALCIUM (CARBONATE) 500 MG TABLET PO SCH ×2 (09:22→21:24)
[2022-01-04] MEDS: PANTOPRAZOLE 40 MG TABLET PO SCH (09:22)
[2022-01-04] MEDS: CETIRIZINE 10 MG TABLET PO SCH (09:22)
[2022-01-04] MEDS: levETIRAcetam 250 MG TABLET PO SCH ×3 (09:22→21:23)
[2022-01-04] MEDS: MYCOPHENOLATE 180 MG TABLET PO SCH ×2 (09:22→21:23)
[2022-01-04] MEDS: MAGNESIUM CHLORIDE 64 MG TABLET PO SCH ×3 (09:22→21:26)
[2022-01-04] MEDS: SODIUM BICARB INJ 50 MEQ in SODIUM CHLORIDE 0.45% 1,000 ML IV SCH (14:08)
[2022-01-04] MEDS: ACETAMINOPHEN 325 MG TABLET PO PRN (21:22)
[2022-01-04] MEDS: ATORVASTATIN 40 MG TABLET PO SCH (21:23)
[2022-01-04] MEDS: INSULIN GLARGINE 100 UNIT/ML SUBCUT SCH (21:25)
[2022-01-05] MEDS: MEROPENEM 500 MG in SODIUM CHLORIDE 0.9% 100 ML IV SCH ×4 (02:57→21:53)
[2022-01-05 05:17] LABS: Basophils % 0.3 % (0.0-0.8); Eosinophils # 0.3 10*3/uL (0.0-0.87); Eosinophils % 4.7 % (0.00-10.9); Hematocrit 34.3 VOL% (42.0-52.0); Hemoglobin 11.2 GM/DL (14.0-18.0); Immature Granulocytes Absolute 0.07 #; Lymphocytes # 0.9 10*3/uL (1.4-4.0); Lymphocytes % 12.4 % (21.2-54.2); Mean Corpuscular HGB Conc 32.7 GM/DL (32-36); Mean Corpuscular Volume 82.1 FL (87-102); Mean Platelet Volume 12.5 FL (9.6-12.0); Monocytes # 1.1 10*3/uL (0.11-0.8); Monocytes % 14.8 % (1.7-12.7); Neutrophils % 66.8 % (38.7-73.9); Platelet Count 250 T/CUMM (130-400); Red Blood Count 4.18 MC/CUMM (3.8-5.5); Red Cell Distribution Width 14.1 % (9.3-17.3); White Blood Count 7.1 T/CUMM (4-12)
[2022-01-05 05:34] LABS: Calcium 8.9 MG/DL (8.5-10.1); Potassium 4.1 MMOL/L (3.5-5.1)
[2022-01-05] MEDS: SODIUM BICARB INJ 50 MEQ in SODIUM CHLORIDE 0.45% 1,000 ML IV SCH (05:38)
[2022-01-05] MEDS: ONDANSETRON 4 MG/2 ML VIAL IV PRN (07:10)
[2022-01-05] MEDS: INSULIN LISPRO 100 UNIT/ML SUBCUT SCH ×4 (07:40→21:55)
[2022-01-05] MEDS: ENOXAPARIN 40 MG/0.4 ML SYRINGE SUBCUT SCH (08:32)
[2022-01-05] MEDS: FLUTICASONE 50 MCG NASAL SPRAY 16 GM BOTTLE BOTH NARES SCH (08:34)
[2022-01-05] MEDS: CALCIUM (CARBONATE) 500 MG TABLET PO SCH ×2 (08:34→22:00)
[2022-01-05] MEDS: TACROLIMUS 0.5 MG CAPSULE PO SCH ×2 (08:34→21:58)
[2022-01-05] MEDS: carvediloL 25 MG TABLET PO SCH ×2 (08:35→16:09)
[2022-01-05] MEDS: PANTOPRAZOLE 40 MG TABLET PO SCH (08:35)
[2022-01-05] MEDS: ACETAMINOPHEN 325 MG TABLET PO PRN (08:35)
[2022-01-05] MEDS: ASPIRIN CHEW 81 MG TABLET PO SCH (08:35)
[2022-01-05] MEDS: CETIRIZINE 10 MG TABLET PO SCH (08:36)
[2022-01-05] MEDS: MAGNESIUM CHLORIDE 64 MG TABLET PO SCH ×3 (08:36→22:00)
[2022-01-05] MEDS: levETIRAcetam 250 MG TABLET PO SCH ×3 (08:36→22:00)
[2022-01-05] MEDS: MYCOPHENOLATE 180 MG TABLET PO SCH ×2 (08:36→21:59)
[2022-01-05] MEDS: amLODIPine 5 MG TABLET PO SCH (08:36)
[2022-01-05] MEDS: DILTIAZEM CD 180 MG CAPSULE PO SCH (08:36)
[2022-01-05] MEDS: predniSONE 10 MG TABLET PO SCH (08:36)
[2022-01-05] MEDS: INSULIN GLARGINE 100 UNIT/ML SUBCUT SCH (21:56)
[2022-01-05] MEDS: ATORVASTATIN 40 MG TABLET PO SCH (22:00)
[2022-01-06] MEDS: SODIUM BICARB INJ 50 MEQ in SODIUM CHLORIDE 0.45% 1,000 ML IV SCH (01:00)
[2022-01-06] MEDS: MEROPENEM 500 MG in SODIUM CHLORIDE 0.9% 100 ML IV SCH ×2 (03:27→08:58)
[2022-01-06 06:15] LABS: Calcium 9.2 MG/DL (8.5-10.1); Osmolality,Calculated 285.8 MOS/KG (273-304); Potassium 3.8 MMOL/L (3.5-5.1)
[2022-01-06] MEDS: INSULIN LISPRO 100 UNIT/ML SUBCUT SCH (08:41)
[2022-01-06] MEDS: ENOXAPARIN 40 MG/0.4 ML SYRINGE SUBCUT SCH (08:58)
[2022-01-06] MEDS: levETIRAcetam 250 MG TABLET PO SCH (08:59)
[2022-01-06] MEDS: ASPIRIN CHEW 81 MG TABLET PO SCH (08:59)
[2022-01-06] MEDS: CETIRIZINE 10 MG TABLET PO SCH (08:59)
[2022-01-06] MEDS: carvediloL 25 MG TABLET PO SCH (09:00)
[2022-01-06] MEDS: MAGNESIUM CHLORIDE 64 MG TABLET PO SCH (09:00)
[2022-01-06] MEDS: MYCOPHENOLATE 180 MG TABLET PO SCH (09:00)
[2022-01-06] MEDS: predniSONE 10 MG TABLET PO SCH (09:00)
[2022-01-06] MEDS: amLODIPine 5 MG TABLET PO SCH (09:01)
[2022-01-06] MEDS: FLUTICASONE 50 MCG NASAL SPRAY 16 GM BOTTLE BOTH NARES SCH (09:01)
[2022-01-06] MEDS: CALCIUM (CARBONATE) 500 MG TABLET PO SCH (09:01)
[2022-01-06] MEDS: PANTOPRAZOLE 40 MG TABLET PO SCH (09:01)
[2022-01-06] MEDS: DILTIAZEM CD 180 MG CAPSULE PO SCH (09:03)
[2022-01-06 13:02] VITALS: BP 155/80
== END 2022-01-06 14:36 | disposition home or self-care (01) | DRG 683 ==
LOC: N.ED 15:51 → N.EDINP 01-03 03:40 → SUATTDRO 01-03 03:40 → N.5E 01-03 12:11
PROVIDERS: ADMIT Internal Medicine; ATTEND Internal Medicine

== ENCOUNTER 2022-06-06 11:46 | Inpatient (IN) ==
[2022-06-06 13:47] LABS: Basophils % 0.2 % (0.0-0.8); Eosinophils % 0.1 % (0.00-10.9); Hematocrit 32.8 VOL% (42.0-52.0); Hemoglobin 10.4 GM/DL (14.0-18.0); Immature Granulocytes % 1.4 %; Immature Granulocytes Absolute 0.27 #; Lymphocytes # 0.9 10*3/uL (1.4-4.0); Lymphocytes % 4.5 % (21.2-54.2); Mean Corpuscular HGB Conc 31.7 GM/DL (32-36); Mean Corpuscular Volume 83.7 FL (87-102); Mean Platelet Volume 11.5 FL (9.6-12.0); Monocytes # 1.4 10*3/uL (0.11-0.8); Monocytes % 7.4 % (1.7-12.7); Neutrophils % 86.4 % (38.7-73.9); Platelet Count 568 T/CUMM (130-400); Red Blood Count 3.92 MC/CUMM (3.8-5.5); Red Cell Distribution Width 13.8 % (9.3-17.3)
[2022-06-06 14:04] LABS: Albumin 2.8 G/DL (3.4-5.0); Bilirubin,Total 1.2 MG/DL (0.20-1.00); Calcium 9.4 MG/DL (8.5-10.1); Osmolality,Calculated 283.5 MOS/KG (273-304); Total Protein 7.3 G/DL (6.4-8.2)
[2022-06-06 14:38] LABS: Platelet Estimate Increased
[2022-06-06] MEDS ORDERED: ONDANSETRON 4 MG/2 ML VIAL IV PRN (15:32)
[2022-06-06] MEDS ORDERED: ACETAMINOPHEN 325 MG TABLET PO PRN (15:32)
[2022-06-06] MEDS ORDERED: hydrALAZINE 20 MG/1 ML VIAL IV PRN (15:32)
[2022-06-06] MEDS ORDERED: GLUCAGON 1 MG VIAL IM PRN (15:32)
[2022-06-06] MEDS ORDERED: DEXTROSE 10% 250 ML BAG IV PRN (16:15)
[2022-06-06] MEDS ORDERED: VANCOMYCIN INJ 2,000 MG in SODIUM CHLORIDE 0.9% 500 ML IV ONE (17:00)
[2022-06-06] MEDS ORDERED: HEPARIN 5,000 UNIT/1 ML VIAL SUBCUT SCH (17:00)
[2022-06-06] MEDS: INSULIN LISPRO 100 UNIT/ML SUBCUT SCH ×2 (18:09→22:29)
[2022-06-06] MEDS: carvediloL 25 MG TABLET PO SCH (19:18)
[2022-06-06] MEDS: PIPERACILLIN/TAZOBACTAM 3.375 MG in SODIUM CHLORIDE 0.9% 100 ML IV SCH (22:28)
[2022-06-06] MEDS: TACROLIMUS 0.5 MG CAPSULE PO SCH (22:29)
[2022-06-06] MEDS: ATORVASTATIN 40 MG TABLET PO SCH (22:30)
[2022-06-06] MEDS: levETIRAcetam 250 MG TABLET PO SCH (22:30)
[2022-06-06] MEDS: CALCIUM (CARBONATE) 500 MG TABLET PO SCH (22:30)
[2022-06-06] MEDS: MYCOPHENOLATE SODIUM 360 MG PO SCH (22:30)
[2022-06-06] MEDS: MAGNESIUM CHLORIDE 64 MG TABLET PO SCH (22:30)
[2022-06-06] MEDS: INSULIN GLARGINE 100 UNIT/ML SUBCUT SCH (22:36)
[2022-06-07 04:34] LABS: Basophils % 0.2 % (0.0-0.8); Eosinophils % 0.3 % (0.00-10.9); Hemoglobin 9.4 GM/DL (14.0-18.0); Immature Granulocytes % 2.3 %; Immature Granulocytes Absolute 0.37 #; Lymphocytes # 1.4 10*3/uL (1.4-4.0); Lymphocytes % 8.8 % (21.2-54.2); Mean Corpuscular HGB Conc 32.4 GM/DL (32-36); Mean Corpuscular Volume 82.6 FL (87-102); Mean Platelet Volume 11.1 FL (9.6-12.0); Monocytes # 1.5 10*3/uL (0.11-0.8); Monocytes % 9.2 % (1.7-12.7); Neutrophils % 79.2 % (38.7-73.9); Platelet Count 540 T/CUMM (130-400); Red Blood Count 3.51 MC/CUMM (3.8-5.5); Red Cell Distribution Width 13.7 % (9.3-17.3); White Blood Count 15.8 T/CUMM (4-12)
[2022-06-07 05:26] LABS: Calcium 9.2 MG/DL (8.5-10.1); Osmolality,Calculated 284.7 MOS/KG (273-304); Potassium 4.6 MMOL/L (3.5-5.1)
[2022-06-07] MEDS: INSULIN LISPRO 100 UNIT/ML SUBCUT SCH ×4 (09:01→22:21)
[2022-06-07] MEDS: PIPERACILLIN/TAZOBACTAM 3.375 MG in SODIUM CHLORIDE 0.9% 100 ML IV SCH ×2 (09:18→17:27)
[2022-06-07] MEDS: DILTIAZEM CD 180 MG CAPSULE PO SCH (09:20)
[2022-06-07] MEDS: carvediloL 25 MG TABLET PO SCH ×2 (09:20→17:21)
[2022-06-07] MEDS: levETIRAcetam 250 MG TABLET PO SCH ×3 (09:21→22:21)
[2022-06-07] MEDS: FLUTICASONE 50 MCG NASAL SPRAY 16 GM BOTTLE BOTH NARES SCH (09:21)
[2022-06-07] MEDS: ASPIRIN CHEW 81 MG TABLET PO SCH (09:21)
[2022-06-07] MEDS: amLODIPine 5 MG TABLET PO SCH (09:22)
[2022-06-07] MEDS: predniSONE 10 MG TABLET PO SCH (09:22)
[2022-06-07] MEDS: CALCIUM (CARBONATE) 500 MG TABLET PO SCH ×2 (09:22→22:22)
[2022-06-07] MEDS: MYCOPHENOLATE SODIUM 360 MG PO SCH (09:22)
[2022-06-07] MEDS: lisinopriL 5 MG TABLET PO SCH (09:23)
[2022-06-07] MEDS: TACROLIMUS 0.5 MG CAPSULE PO SCH ×2 (09:24→22:22)
[2022-06-07] MEDS: PANTOPRAZOLE 40 MG TABLET PO SCH (09:24)
[2022-06-07] MEDS: MAGNESIUM CHLORIDE 64 MG TABLET PO SCH ×3 (09:24→22:22)
[2022-06-07] MEDS: CHOLECALCIFEROL 1,000 UNIT TABLET PO SCH (09:25)
[2022-06-07] MEDS ORDERED: LIDOCAINE 2% 5 ML VIAL ONE (10:55)
[2022-06-07] MEDS ORDERED: propofoL 200 MG/20 ML VIAL IV ONE (10:55)
[2022-06-07] MEDS ORDERED: MIDAZOLAM 2 MG/2 ML VIAL ONE (10:56)
[2022-06-07] MEDS ORDERED: fentaNYL 100 MCG/2 ML VIAL ONE (10:56)
[2022-06-07] MEDS ORDERED: LIDOCAINE 1% 5 ML VIAL ONE (14:09)
[2022-06-07] MEDS ORDERED: PHENYLEPHRINE 1 MG/10 ML SYRINGE IV ONE (14:39)
[2022-06-07] MEDS ORDERED: ONDANSETRON 4 MG/2 ML VIAL ONE (14:39)
[2022-06-07] MEDS ORDERED: HYDROmorphone 1 MG/1 ML SYRINGE ONE (14:44)
[2022-06-07] MEDS ORDERED: SEVOFLURANE 1 UNIT/15 MINUTE INH ONE ×2 (14:47→14:48)
[2022-06-07] MEDS ORDERED: VANCOMYCIN INJ 1,250 MG in SODIUM CHLORIDE 0.9% 250 ML IV PRN (17:00)
[2022-06-07] MEDS: ATORVASTATIN 40 MG TABLET PO SCH (22:22)
[2022-06-07] MEDS: INSULIN GLARGINE 100 UNIT/ML SUBCUT SCH (22:43)
[2022-06-08] MEDS: PIPERACILLIN/TAZOBACTAM 3.375 MG in SODIUM CHLORIDE 0.9% 100 ML IV SCH ×2 (01:18→09:45)
[2022-06-08 05:00] LABS: Basophils % 0.2 % (0.0-0.8); Eosinophils # 0.2 10*3/uL (0.0-0.87); Eosinophils % 1.2 % (0.00-10.9); Hematocrit 28.4 VOL% (42.0-52.0); Hemoglobin 9.2 GM/DL (14.0-18.0); Immature Granulocytes Absolute 0.12 #; Lymphocytes # 1.4 10*3/uL (1.4-4.0); Lymphocytes % 11.2 % (21.2-54.2); Mean Corpuscular HGB Conc 32.4 GM/DL (32-36); Mean Corpuscular Volume 82.6 FL (87-102); Mean Platelet Volume 11.2 FL (9.6-12.0); Monocytes # 1.2 10*3/uL (0.11-0.8); Monocytes % 9.6 % (1.7-12.7); Neutrophils % 76.8 % (38.7-73.9); Platelet Count 584 T/CUMM (130-400); Red Blood Count 3.44 MC/CUMM (3.8-5.5); Red Cell Distribution Width 13.7 % (9.3-17.3); White Blood Count 12.3 T/CUMM (4-12)
[2022-06-08 05:18] LABS: Osmolality,Calculated 280.1 MOS/KG (273-304); Potassium 4.6 MMOL/L (3.5-5.1)
[2022-06-08] MEDS: MYCOPHENOLATE SODIUM 360 MG PO SCH ×3 (07:03→21:41)
[2022-06-08] MEDS: FLUTICASONE 50 MCG NASAL SPRAY 16 GM BOTTLE BOTH NARES SCH (09:35)
[2022-06-08] MEDS: CALCIUM (CARBONATE) 500 MG TABLET PO SCH ×2 (09:39→21:39)
[2022-06-08] MEDS: levETIRAcetam 250 MG TABLET PO SCH ×3 (09:39→21:39)
[2022-06-08] MEDS: ASPIRIN CHEW 81 MG TABLET PO SCH (09:39)
[2022-06-08] MEDS: DILTIAZEM CD 180 MG CAPSULE PO SCH (09:39)
[2022-06-08] MEDS: MAGNESIUM CHLORIDE 64 MG TABLET PO SCH ×3 (09:39→21:39)
[2022-06-08] MEDS: PANTOPRAZOLE 40 MG TABLET PO SCH (09:40)
[2022-06-08] MEDS: predniSONE 10 MG TABLET PO SCH (09:40)
[2022-06-08] MEDS: lisinopriL 5 MG TABLET PO SCH (09:40)
[2022-06-08] MEDS: TACROLIMUS 0.5 MG CAPSULE PO SCH ×2 (09:40→21:39)
[2022-06-08] MEDS: amLODIPine 5 MG TABLET PO SCH (09:40)
[2022-06-08] MEDS: CHOLECALCIFEROL 1,000 UNIT TABLET PO SCH (09:40)
[2022-06-08] MEDS: carvediloL 25 MG TABLET PO SCH ×2 (09:40→16:19)
[2022-06-08] MEDS: INSULIN LISPRO 100 UNIT/ML SUBCUT SCH ×4 (10:01→21:41)
[2022-06-08] MEDS: cefTRIAXone 2,000 MG in SODIUM CHLORIDE 0.9% 100 ML IV SCH (13:45)
[2022-06-08] MEDS ORDERED: PIPERACILLIN/TAZOBACTAM 3,375 MG in SODIUM CHLORIDE 0.9% 100 ML IV SCH (17:00)
[2022-06-08] MEDS: ATORVASTATIN 40 MG TABLET PO SCH (21:39)
[2022-06-08] MEDS: INSULIN GLARGINE 100 UNIT/ML SUBCUT SCH (21:41)
[2022-06-09 04:50] LABS: Basophils % 0.3 % (0.0-0.8); Eosinophils # 0.1 10*3/uL (0.0-0.87); Eosinophils % 0.5 % (0.00-10.9); Hemoglobin 8.9 GM/DL (14.0-18.0); Immature Granulocytes Absolute 0.16 #; Lymphocytes # 1.7 10*3/uL (1.4-4.0); Lymphocytes % 10.7 % (21.2-54.2); Mean Corpuscular HGB Conc 31.8 GM/DL (32-36); Mean Corpuscular Volume 83.3 FL (87-102); Mean Platelet Volume 11.2 FL (9.6-12.0); Monocytes # 1.5 10*3/uL (0.11-0.8); Monocytes % 9.4 % (1.7-12.7); Neutrophils % 78.1 % (38.7-73.9); Platelet Count 586 T/CUMM (130-400); Red Blood Count 3.36 MC/CUMM (3.8-5.5); Red Cell Distribution Width 13.7 % (9.3-17.3); White Blood Count 15.5 T/CUMM (4-12)
[2022-06-09 05:11] LABS: Platelet Estimate Normal
[2022-06-09 05:27] LABS: Calcium 8.4 MG/DL (8.5-10.1); Osmolality,Calculated 280.7 MOS/KG (273-304); Potassium 4.2 MMOL/L (3.5-5.1)
[2022-06-09] MEDS: PANTOPRAZOLE 40 MG TABLET PO SCH (09:54)
[2022-06-09] MEDS: predniSONE 10 MG TABLET PO SCH (09:54)
[2022-06-09] MEDS: levETIRAcetam 250 MG TABLET PO SCH ×3 (09:54→21:16)
[2022-06-09] MEDS: CHOLECALCIFEROL 1,000 UNIT TABLET PO SCH (09:54)
[2022-06-09] MEDS: ASPIRIN CHEW 81 MG TABLET PO SCH (09:54)
[2022-06-09] MEDS: amLODIPine 5 MG TABLET PO SCH (09:54)
[2022-06-09] MEDS: carvediloL 25 MG TABLET PO SCH ×2 (09:54→16:11)
[2022-06-09] MEDS: TACROLIMUS 0.5 MG CAPSULE PO SCH ×2 (09:54→21:17)
[2022-06-09] MEDS: MAGNESIUM CHLORIDE 64 MG TABLET PO SCH ×3 (09:54→21:17)
[2022-06-09] MEDS: lisinopriL 5 MG TABLET PO SCH (09:55)
[2022-06-09] MEDS: DILTIAZEM CD 180 MG CAPSULE PO SCH (09:55)
[2022-06-09] MEDS: FLUTICASONE 50 MCG NASAL SPRAY 16 GM BOTTLE BOTH NARES SCH (09:58)
[2022-06-09] MEDS: MYCOPHENOLATE SODIUM 360 MG PO SCH ×2 (10:20→21:20)
[2022-06-09] MEDS: INSULIN LISPRO 100 UNIT/ML SUBCUT SCH ×4 (10:21→21:18)
[2022-06-09] MEDS: CALCIUM (CARBONATE) 500 MG TABLET PO SCH ×2 (10:25→21:17)
[2022-06-09] MEDS: cefTRIAXone 2,000 MG in SODIUM CHLORIDE 0.9% 100 ML IV SCH (12:23)
[2022-06-09] MEDS: ATORVASTATIN 40 MG TABLET PO SCH (21:17)
[2022-06-09] MEDS: INSULIN GLARGINE 100 UNIT/ML SUBCUT SCH (21:18)
[2022-06-10 05:04] LABS: Bacteria,Urine Occasional /HPF (Few); Bilirubin,Urine Negative (Negative); Blood, Urine Negative (Negative); Glucose,Urine (UA) 50 mg/dL (Negative); Hyaline Casts,Urine 3 /LPF (0-3); Ketones,Urine Negative (Negative); Mucus,Urine Occasional /LPF (Occasional); Nitrite,Urine Negative (Negative); Protein,Urine Negative (Negative); RBC,Urine <1 /HPF (0-4); Urine Appearance CLEAR (Clear); Urine Color Yellow (Yellow); Urine Specific Gravity 1.012 (1.001-1.035); Urine Urobilinogen < 2.0 eU/dL (<2.0)
[2022-06-10 05:42] LABS: Basophils % 0.2 % (0.0-0.8); Eosinophils # 0.1 10*3/uL (0.0-0.87); Eosinophils % 0.5 % (0.00-10.9); Hematocrit 27.9 VOL% (42.0-52.0); Hemoglobin 8.8 GM/DL (14.0-18.0); Immature Granulocytes Absolute 0.17 #; Lymphocytes # 1.7 10*3/uL (1.4-4.0); Lymphocytes % 10.1 % (21.2-54.2); Mean Corpuscular HGB Conc 31.5 GM/DL (32-36); Mean Corpuscular Volume 83.3 FL (87-102); Mean Platelet Volume 11.5 FL (9.6-12.0); Monocytes # 1.3 10*3/uL (0.11-0.8); Monocytes % 7.9 % (1.7-12.7); Neutrophils % 80.3 % (38.7-73.9); Platelet Count 602 T/CUMM (130-400); Red Blood Count 3.35 MC/CUMM (3.8-5.5); Red Cell Distribution Width 13.8 % (9.3-17.3); White Blood Count 16.5 T/CUMM (4-12)
[2022-06-10 05:47] LABS: Calcium 9.1 MG/DL (8.5-10.1); Osmolality,Calculated 281.8 MOS/KG (273-304); Potassium 4.2 MMOL/L (3.5-5.1)
[2022-06-10] MEDS: INSULIN LISPRO 100 UNIT/ML SUBCUT SCH ×4 (08:19→20:51)
[2022-06-10] MEDS: DILTIAZEM CD 180 MG CAPSULE PO SCH (08:21)
[2022-06-10] MEDS: CALCIUM (CARBONATE) 500 MG TABLET PO SCH ×2 (08:21→20:52)
[2022-06-10] MEDS: TACROLIMUS 0.5 MG CAPSULE PO SCH ×2 (08:21→20:52)
[2022-06-10] MEDS: ASPIRIN CHEW 81 MG TABLET PO SCH (08:22)
[2022-06-10] MEDS: lisinopriL 5 MG TABLET PO SCH (08:22)
[2022-06-10] MEDS: predniSONE 10 MG TABLET PO SCH (08:22)
[2022-06-10] MEDS: amLODIPine 5 MG TABLET PO SCH (08:22)
[2022-06-10] MEDS: CHOLECALCIFEROL 1,000 UNIT TABLET PO SCH (08:22)
[2022-06-10] MEDS: MYCOPHENOLATE SODIUM 360 MG PO SCH ×2 (08:22→20:56)
[2022-06-10] MEDS: levETIRAcetam 250 MG TABLET PO SCH ×3 (08:22→20:52)
[2022-06-10] MEDS: PANTOPRAZOLE 40 MG TABLET PO SCH (08:22)
[2022-06-10] MEDS: carvediloL 25 MG TABLET PO SCH ×2 (08:22→17:43)
[2022-06-10] MEDS: FLUTICASONE 50 MCG NASAL SPRAY 16 GM BOTTLE BOTH NARES SCH (08:22)
[2022-06-10] MEDS: MAGNESIUM CHLORIDE 64 MG TABLET PO SCH ×3 (08:22→20:52)
[2022-06-10] MEDS: MEROPENEM 500 MG in SODIUM CHLORIDE 0.9% 100 ML IV SCH ×3 (11:40→22:39)
[2022-06-10] MEDS: INSULIN GLARGINE 100 UNIT/ML SUBCUT SCH (20:51)
[2022-06-10] MEDS: ATORVASTATIN 40 MG TABLET PO SCH (20:53)
[2022-06-11] MEDS: MEROPENEM 500 MG in SODIUM CHLORIDE 0.9% 100 ML IV SCH ×4 (05:24→23:33)
[2022-06-11 05:50] LABS: Basophils % 0.3 % (0.0-0.8); Eosinophils # 0.1 10*3/uL (0.0-0.87); Eosinophils % 0.9 % (0.00-10.9); Hematocrit 28.7 VOL% (42.0-52.0); Hemoglobin 8.9 GM/DL (14.0-18.0); Immature Granulocytes % 1.9 %; Immature Granulocytes Absolute 0.27 #; Lymphocytes # 1.7 10*3/uL (1.4-4.0); Lymphocytes % 11.7 % (21.2-54.2); Mean Corpuscular Volume 83.9 FL (87-102); Mean Platelet Volume 11.3 FL (9.6-12.0); Monocytes % 7.3 % (1.7-12.7); Neutrophils % 77.9 % (38.7-73.9); Platelet Count 639 T/CUMM (130-400); Red Blood Count 3.42 MC/CUMM (3.8-5.5); Red Cell Distribution Width 13.9 % (9.3-17.3); White Blood Count 14.2 T/CUMM (4-12)
[2022-06-11 06:16] LABS: Calcium 9.3 MG/DL (8.5-10.1); Osmolality,Calculated 284.4 MOS/KG (273-304)
[2022-06-11] MEDS: INSULIN LISPRO 100 UNIT/ML SUBCUT SCH ×4 (07:10→21:18)
[2022-06-11] MEDS: lisinopriL 5 MG TABLET PO SCH (08:55)
[2022-06-11] MEDS: ASPIRIN CHEW 81 MG TABLET PO SCH (08:55)
[2022-06-11] MEDS: CALCIUM (CARBONATE) 500 MG TABLET PO SCH ×2 (08:55→21:16)
[2022-06-11] MEDS: DILTIAZEM CD 180 MG CAPSULE PO SCH (08:55)
[2022-06-11] MEDS: predniSONE 10 MG TABLET PO SCH (08:55)
[2022-06-11] MEDS: MAGNESIUM CHLORIDE 64 MG TABLET PO SCH ×3 (08:55→21:16)
[2022-06-11] MEDS: TACROLIMUS 0.5 MG CAPSULE PO SCH ×2 (08:55→21:17)
[2022-06-11] MEDS: amLODIPine 5 MG TABLET PO SCH (08:55)
[2022-06-11] MEDS: PANTOPRAZOLE 40 MG TABLET PO SCH (08:55)
[2022-06-11] MEDS: carvediloL 25 MG TABLET PO SCH ×3 (08:56→18:15)
[2022-06-11] MEDS: levETIRAcetam 250 MG TABLET PO SCH ×3 (08:56→21:17)
[2022-06-11] MEDS: CHOLECALCIFEROL 1,000 UNIT TABLET PO SCH (08:56)
[2022-06-11] MEDS: FLUTICASONE 50 MCG NASAL SPRAY 16 GM BOTTLE BOTH NARES SCH (08:56)
[2022-06-11] MEDS: MYCOPHENOLATE SODIUM 360 MG PO SCH ×2 (08:56→21:17)
[2022-06-11] MEDS: ATORVASTATIN 40 MG TABLET PO SCH (21:17)
[2022-06-11] MEDS: INSULIN GLARGINE 100 UNIT/ML SUBCUT SCH (21:18)
[2022-06-11] MEDS: SODIUM BICARBONATE 650 MG TABLET PO SCH (21:22)
[2022-06-12] MEDS: MEROPENEM 500 MG in SODIUM CHLORIDE 0.9% 100 ML IV SCH ×2 (05:25→10:49)
[2022-06-12 06:23] LABS: Basophils % 0.2 % (0.0-0.8); Eosinophils # 0.1 10*3/uL (0.0-0.87); Eosinophils % 0.7 % (0.00-10.9); Hematocrit 28.9 VOL% (42.0-52.0); Immature Granulocytes % 2.6 %; Immature Granulocytes Absolute 0.31 #; Lymphocytes # 1.6 10*3/uL (1.4-4.0); Lymphocytes % 13.5 % (21.2-54.2); Mean Corpuscular HGB Conc 31.1 GM/DL (32-36); Mean Corpuscular Volume 83.5 FL (87-102); Mean Platelet Volume 11.1 FL (9.6-12.0); Monocytes % 8.4 % (1.7-12.7); Neutrophils % 74.6 % (38.7-73.9); Platelet Count 646 T/CUMM (130-400); Red Blood Count 3.46 MC/CUMM (3.8-5.5); Red Cell Distribution Width 13.9 % (9.3-17.3); White Blood Count 12.1 T/CUMM (4-12)
[2022-06-12 06:36] LABS: Calcium 9.3 MG/DL (8.5-10.1); Osmolality,Calculated 292.4 MOS/KG (273-304); Potassium 5.2 MMOL/L (3.5-5.1)
[2022-06-12] MEDS: SODIUM BICARBONATE 650 MG TABLET PO SCH ×2 (08:40→21:18)
[2022-06-12] MEDS: CALCIUM (CARBONATE) 500 MG TABLET PO SCH ×2 (08:41→21:18)
[2022-06-12] MEDS: MAGNESIUM CHLORIDE 64 MG TABLET PO SCH ×3 (08:41→21:18)
[2022-06-12] MEDS: DILTIAZEM CD 180 MG CAPSULE PO SCH (08:41)
[2022-06-12] MEDS: predniSONE 10 MG TABLET PO SCH (08:41)
[2022-06-12] MEDS: carvediloL 25 MG TABLET PO SCH ×2 (08:42→16:36)
[2022-06-12] MEDS: levETIRAcetam 250 MG TABLET PO SCH ×3 (08:42→21:18)
[2022-06-12] MEDS: ASPIRIN CHEW 81 MG TABLET PO SCH (08:42)
[2022-06-12] MEDS: amLODIPine 5 MG TABLET PO SCH (08:42)
[2022-06-12] MEDS: TACROLIMUS 0.5 MG CAPSULE PO SCH ×2 (08:42→21:18)
[2022-06-12] MEDS: CHOLECALCIFEROL 1,000 UNIT TABLET PO SCH (08:42)
[2022-06-12] MEDS: FLUTICASONE 50 MCG NASAL SPRAY 16 GM BOTTLE BOTH NARES SCH (08:42)
[2022-06-12] MEDS: PANTOPRAZOLE 40 MG TABLET PO SCH (08:42)
[2022-06-12] MEDS: lisinopriL 5 MG TABLET PO SCH (08:43)
[2022-06-12] MEDS: INSULIN LISPRO 100 UNIT/ML SUBCUT SCH ×4 (08:43→21:19)
[2022-06-12] MEDS: MYCOPHENOLATE SODIUM 360 MG PO SCH ×2 (08:48→21:20)
[2022-06-12] MEDS: cefTRIAXone 1,000 MG in SODIUM CHLORIDE 0.9% 100 ML IV SCH (14:47)
[2022-06-12] MEDS ORDERED: INSULIN GLARGINE 100 UNIT/ML SUBCUT SCH (21:00)
[2022-06-12] MEDS: ATORVASTATIN 40 MG TABLET PO SCH (21:18)
[2022-06-13 06:56] LABS: Basophils % 0.3 % (0.0-0.8); Eosinophils # 0.1 10*3/uL (0.0-0.87); Eosinophils % 0.7 % (0.00-10.9); Hematocrit 29.1 VOL% (42.0-52.0); Hemoglobin 9.2 GM/DL (14.0-18.0); Immature Granulocytes % 3.3 %; Immature Granulocytes Absolute 0.36 #; Lymphocytes # 1.6 10*3/uL (1.4-4.0); Mean Corpuscular HGB Conc 31.6 GM/DL (32-36); Mean Corpuscular Volume 83.1 FL (87-102); Monocytes # 0.9 10*3/uL (0.11-0.8); Monocytes % 8.2 % (1.7-12.7); NRBC # 0.02 10*3/uL; Neutrophils % 72.5 % (38.7-73.9); Platelet Count 629 T/CUMM (130-400); White Blood Count 10.9 T/CUMM (4-12)
[2022-06-13 07:16] LABS: Calcium 9.6 MG/DL (8.5-10.1); Osmolality,Calculated 288.1 MOS/KG (273-304); Potassium 4.2 MMOL/L (3.5-5.1)
[2022-06-13] MEDS: SODIUM BICARBONATE 650 MG TABLET PO SCH ×2 (09:01→21:49)
[2022-06-13] MEDS: CHOLECALCIFEROL 1,000 UNIT TABLET PO SCH (09:01)
[2022-06-13] MEDS: ASPIRIN CHEW 81 MG TABLET PO SCH (09:01)
[2022-06-13] MEDS: TACROLIMUS 0.5 MG CAPSULE PO SCH ×2 (09:01→21:49)
[2022-06-13] MEDS: CALCIUM (CARBONATE) 500 MG TABLET PO SCH ×2 (09:01→21:49)
[2022-06-13] MEDS: carvediloL 25 MG TABLET PO SCH ×2 (09:02→16:44)
[2022-06-13] MEDS: levETIRAcetam 250 MG TABLET PO SCH ×3 (09:02→21:58)
[2022-06-13] MEDS: MAGNESIUM CHLORIDE 64 MG TABLET PO SCH ×2 (09:02→21:49)
[2022-06-13] MEDS: FLUTICASONE 50 MCG NASAL SPRAY 16 GM BOTTLE BOTH NARES SCH (09:02)
[2022-06-13] MEDS: predniSONE 10 MG TABLET PO SCH (09:02)
[2022-06-13] MEDS: DILTIAZEM CD 180 MG CAPSULE PO SCH (09:02)
[2022-06-13] MEDS: PANTOPRAZOLE 40 MG TABLET PO SCH (09:02)
[2022-06-13] MEDS: MYCOPHENOLATE SODIUM 360 MG PO SCH ×2 (09:03→21:50)
[2022-06-13] MEDS: INSULIN LISPRO 100 UNIT/ML SUBCUT SCH ×4 (09:04→21:51)
[2022-06-13] MEDS: cefTRIAXone 1,000 MG in SODIUM CHLORIDE 0.9% 100 ML IV SCH (16:45)
[2022-06-13] MEDS: INSULIN GLARGINE 100 UNIT/ML SUBCUT SCH (21:51)
[2022-06-13] MEDS: ATORVASTATIN 40 MG TABLET PO SCH (21:57)
[2022-06-14 04:40] LABS: Basophils % 0.3 % (0.0-0.8); Eosinophils # 0.1 10*3/uL (0.0-0.87); Eosinophils % 0.7 % (0.00-10.9); Hematocrit 29.3 VOL% (42.0-52.0); Hemoglobin 9.3 GM/DL (14.0-18.0); Immature Granulocytes % 2.8 %; Immature Granulocytes Absolute 0.36 #; Lymphocytes # 1.8 10*3/uL (1.4-4.0); Lymphocytes % 14.3 % (21.2-54.2); Mean Corpuscular HGB Conc 31.7 GM/DL (32-36); Mean Corpuscular Volume 83.2 FL (87-102); Mean Platelet Volume 11.2 FL (9.6-12.0); Monocytes % 7.7 % (1.7-12.7); NRBC # 0.02 10*3/uL; Neutrophils % 74.2 % (38.7-73.9); Platelet Count 626 T/CUMM (130-400); Red Blood Count 3.52 MC/CUMM (3.8-5.5); Red Cell Distribution Width 14.2 % (9.3-17.3); White Blood Count 12.7 T/CUMM (4-12)
[2022-06-14 04:59] LABS: Calcium 9.8 MG/DL (8.5-10.1); Osmolality,Calculated 285.1 MOS/KG (273-304); Potassium 4.3 MMOL/L (3.5-5.1)
[2022-06-14] MEDS: SODIUM BICARBONATE 650 MG TABLET PO SCH ×2 (09:20→20:55)
[2022-06-14] MEDS: ASPIRIN CHEW 81 MG TABLET PO SCH (09:20)
[2022-06-14] MEDS: DILTIAZEM CD 180 MG CAPSULE PO SCH (09:20)
[2022-06-14] MEDS: predniSONE 10 MG TABLET PO SCH (09:21)
[2022-06-14] MEDS: TACROLIMUS 0.5 MG CAPSULE PO SCH ×2 (09:21→20:55)
[2022-06-14] MEDS: PANTOPRAZOLE 40 MG TABLET PO SCH (09:21)
[2022-06-14] MEDS: carvediloL 25 MG TABLET PO SCH ×2 (09:21→16:59)
[2022-06-14] MEDS: CHOLECALCIFEROL 1,000 UNIT TABLET PO SCH (09:21)
[2022-06-14] MEDS: CALCIUM (CARBONATE) 500 MG TABLET PO SCH ×2 (09:21→20:55)
[2022-06-14] MEDS: MAGNESIUM CHLORIDE 64 MG TABLET PO SCH ×2 (09:21→20:55)
[2022-06-14] MEDS: MYCOPHENOLATE SODIUM 360 MG PO SCH ×2 (09:22→21:00)
[2022-06-14] MEDS: INSULIN LISPRO 100 UNIT/ML SUBCUT SCH ×7 (09:22→20:58)
[2022-06-14] MEDS: levETIRAcetam 250 MG TABLET PO SCH ×3 (09:22→20:55)
[2022-06-14] MEDS: FLUTICASONE 50 MCG NASAL SPRAY 16 GM BOTTLE BOTH NARES SCH (09:22)
[2022-06-14 13:31] LABS: % Iron Saturation 17.3 % (18-50)
[2022-06-14 13:59] LABS: Folate 5.92 NG/ML (5.38-24.0)
[2022-06-14] MEDS: cefTRIAXone 1,000 MG in SODIUM CHLORIDE 0.9% 100 ML IV SCH (15:54)
[2022-06-14] MEDS: ATORVASTATIN 40 MG TABLET PO SCH (20:55)
[2022-06-14] MEDS: INSULIN GLARGINE 100 UNIT/ML SUBCUT SCH (20:58)
[2022-06-15 06:28] LABS: Basophils % 0.4 % (0.0-0.8); Eosinophils # 0.1 10*3/uL (0.0-0.87); Eosinophils % 0.5 % (0.00-10.9); Hematocrit 30.9 VOL% (42.0-52.0); Hemoglobin 9.5 GM/DL (14.0-18.0); Immature Granulocytes % 3.2 %; Immature Granulocytes Absolute 0.35 #; Lymphocytes # 1.8 10*3/uL (1.4-4.0); Lymphocytes % 16.2 % (21.2-54.2); Mean Corpuscular HGB Conc 30.7 GM/DL (32-36); Mean Corpuscular Volume 84.2 FL (87-102); Monocytes # 0.8 10*3/uL (0.11-0.8); Monocytes % 7.6 % (1.7-12.7); Neutrophils % 72.1 % (38.7-73.9); Platelet Count 589 T/CUMM (130-400); Red Blood Count 3.67 MC/CUMM (3.8-5.5); Red Cell Distribution Width 14.1 % (9.3-17.3); White Blood Count 11.1 T/CUMM (4-12)
[2022-06-15 06:42] LABS: Osmolality,Calculated 283.4 MOS/KG (273-304); Potassium 4.1 MMOL/L (3.5-5.1)
[2022-06-15] MEDS ORDERED: HEPARIN/NACL 0.9% 2 UNITS/ML 4,000 UNIT/2,000 ML BAG IV ONE (08:18)
[2022-06-15] MEDS ORDERED: DIAZEPAM 5 MG TABLET PO ONE (08:20)
[2022-06-15] MEDS: SODIUM CHLORIDE 0.45% 1,000 ML IV SCH ×2 (08:26→14:24)
[2022-06-15] MEDS ORDERED: fentaNYL 100 MCG/2 ML VIAL IV ONE (09:26)
[2022-06-15] MEDS ORDERED: MIDAZOLAM 2 MG/2 ML VIAL IV ONE (09:26)
[2022-06-15] MEDS ORDERED: HEPARIN 5,000 UNIT/1 ML VIAL ONE (09:46)
[2022-06-15] MEDS: INSULIN LISPRO 100 UNIT/ML SUBCUT SCH ×7 (10:02→21:46)
[2022-06-15] MEDS: ASPIRIN CHEW 81 MG TABLET PO SCH (10:23)
[2022-06-15] MEDS ORDERED: HEPARIN 5,000 UNIT/1 ML VIAL IV ONE ×2 (10:25→11:07)
[2022-06-15] MEDS ORDERED: HEPARIN 1,000 UNIT/1 ML VIAL ONE (11:03)
[2022-06-15] MEDS: CHOLECALCIFEROL 1,000 UNIT TABLET PO SCH (13:19)
[2022-06-15] MEDS: MYCOPHENOLATE SODIUM 360 MG PO SCH ×2 (13:19→21:45)
[2022-06-15] MEDS: TACROLIMUS 0.5 MG CAPSULE PO SCH ×2 (13:19→21:41)
[2022-06-15] MEDS: MAGNESIUM CHLORIDE 64 MG TABLET PO SCH ×2 (13:19→21:41)
[2022-06-15] MEDS: levETIRAcetam 250 MG TABLET PO SCH ×3 (13:19→21:41)
[2022-06-15] MEDS: PANTOPRAZOLE 40 MG TABLET PO SCH (13:19)
[2022-06-15] MEDS: SODIUM BICARBONATE 650 MG TABLET PO SCH ×2 (13:19→21:41)
[2022-06-15] MEDS: CALCIUM (CARBONATE) 500 MG TABLET PO SCH ×2 (13:20→21:41)
[2022-06-15] MEDS: predniSONE 10 MG TABLET PO SCH (13:20)
[2022-06-15] MEDS: carvediloL 25 MG TABLET PO SCH ×2 (13:20→17:04)
[2022-06-15] MEDS: DILTIAZEM CD 180 MG CAPSULE PO SCH (13:20)
[2022-06-15] MEDS: FLUTICASONE 50 MCG NASAL SPRAY 16 GM BOTTLE BOTH NARES SCH (13:22)
[2022-06-15] MEDS ORDERED: MAGNESIUM SULF RIDER 1 GM/100 ML PREMIX IV ONE (13:45)
[2022-06-15] MEDS ORDERED: MAGNESIUM SULF RIDER 2 GM/50 ML PREMIX IV ONE (14:00)
[2022-06-15] MEDS: FERRIC GLUCONATE COMPLEX 125 MG in SODIUM CHLORIDE 0.9% 100 ML IV SCH (16:02)
[2022-06-15] MEDS: cefTRIAXone 1,000 MG in SODIUM CHLORIDE 0.9% 100 ML IV SCH (17:31)
[2022-06-15] MEDS ORDERED: DOXYCYCLINE HYCLATE 100 MG CAPSULE PO SCH (21:00)
[2022-06-15] MEDS: ATORVASTATIN 40 MG TABLET PO SCH (21:40)
[2022-06-15] MEDS: INSULIN GLARGINE 100 UNIT/ML SUBCUT SCH (21:46)
[2022-06-16 06:00] LABS: Basophils % 0.3 % (0.0-0.8); Eosinophils # 0.1 10*3/uL (0.0-0.87); Eosinophils % 0.7 % (0.00-10.9); Hematocrit 30.6 VOL% (42.0-52.0); Hemoglobin 9.5 GM/DL (14.0-18.0); Immature Granulocytes % 2.7 %; Immature Granulocytes Absolute 0.27 #; Lymphocytes # 1.2 10*3/uL (1.4-4.0); Lymphocytes % 11.9 % (21.2-54.2); Mean Corpuscular Volume 84.8 FL (87-102); Mean Platelet Volume 11.4 FL (9.6-12.0); Monocytes # 0.8 10*3/uL (0.11-0.8); Monocytes % 8.4 % (1.7-12.7); Platelet Count 553 T/CUMM (130-400); Red Blood Count 3.61 MC/CUMM (3.8-5.5); Red Cell Distribution Width 14.1 % (9.3-17.3); White Blood Count 9.9 T/CUMM (4-12)
[2022-06-16 06:23] LABS: Osmolality,Calculated 287.3 MOS/KG (273-304); Potassium 4.2 MMOL/L (3.5-5.1)
[2022-06-16] MEDS ORDERED: cilostazoL 50 MG TABLET PO SCH (09:00)
[2022-06-16] MEDS: INSULIN LISPRO 100 UNIT/ML SUBCUT SCH ×3 (09:09→11:47)
[2022-06-16] MEDS: carvediloL 25 MG TABLET PO SCH (09:09)
[2022-06-16] MEDS: levETIRAcetam 250 MG TABLET PO SCH (09:10)
[2022-06-16] MEDS: ASPIRIN CHEW 81 MG TABLET PO SCH (09:10)
[2022-06-16] MEDS: CALCIUM (CARBONATE) 500 MG TABLET PO SCH (09:10)
[2022-06-16] MEDS: SODIUM BICARBONATE 650 MG TABLET PO SCH (09:10)
[2022-06-16] MEDS: predniSONE 10 MG TABLET PO SCH (09:10)
[2022-06-16] MEDS: MAGNESIUM CHLORIDE 64 MG TABLET PO SCH (09:10)
[2022-06-16] MEDS: TACROLIMUS 0.5 MG CAPSULE PO SCH (09:11)
[2022-06-16] MEDS: CHOLECALCIFEROL 1,000 UNIT TABLET PO SCH (09:11)
[2022-06-16] MEDS: DILTIAZEM CD 180 MG CAPSULE PO SCH (09:11)
[2022-06-16] MEDS: PANTOPRAZOLE 40 MG TABLET PO SCH (09:11)
[2022-06-16] MEDS: FLUTICASONE 50 MCG NASAL SPRAY 16 GM BOTTLE BOTH NARES SCH (09:13)
[2022-06-16] MEDS: MYCOPHENOLATE SODIUM 360 MG PO SCH (09:13)
[2022-06-16 11:25] VITALS: BP 135/74
[2022-06-16] MEDS: SODIUM CHLORIDE 0.45% 1,000 ML IV SCH (11:36)
[2022-06-16] MEDS: FERRIC GLUCONATE COMPLEX 125 MG in SODIUM CHLORIDE 0.9% 100 ML IV SCH (12:02)
== END 2022-06-16 16:43 | disposition home health service (06) | DRG 616 ==
LOC: N.ED 11:46 → N.EDINP 15:32 → SUATTDRO 15:32 → N.3E 17:05
PROVIDERS: ADMIT Internal Medicine; ATTEND Internal Medicine

== ENCOUNTER 2022-06-23 07:59 | Inpatient (IN) ==
[~2022-06-23 07:59] MED LIST: CLINDAMYCIN INJ 900 MG/50 ML PREMIX IV ONE
[2022-06-23] MEDS: LACTATED RINGERS 1,000 ML IV SCH (08:15)
[2022-06-23] MEDS ORDERED: fentaNYL 100 MCG/2 ML VIAL ONE (09:22)
[2022-06-23] MEDS ORDERED: propofoL 200 MG/20 ML VIAL IV ONE (09:22)
[2022-06-23] MEDS ORDERED: LIDOCAINE 2% 5 ML VIAL ONE (09:22)
[2022-06-23] MEDS ORDERED: MIDAZOLAM 2 MG/2 ML VIAL ONE (09:22)
[2022-06-23] MEDS ORDERED: LIDOCAINE 1% 5 ML VIAL ONE (09:24)
[2022-06-23] MEDS ORDERED: GLUCAGON 1 MG VIAL IM PRN (10:03)
[2022-06-23] MEDS ORDERED: ONDANSETRON 4 MG/2 ML VIAL IV PRN (10:03)
[2022-06-23] MEDS ORDERED: DEXTROSE 10% 250 ML BAG IV PRN (10:03)
[2022-06-23] MEDS ORDERED: HYDROmorphone 1 MG/1 ML SYRINGE IV PRN (10:03)
[2022-06-23] MEDS ORDERED: ACETAMINOPHEN 325 MG TABLET PO PRN (10:03)
[2022-06-23] MEDS ORDERED: PHENYLEPHRINE 1 MG/10 ML SYRINGE IV ONE (10:03)
[2022-06-23] MEDS ORDERED: ePHEDrine 50 MG/ML VIAL ONE (10:18)
[2022-06-23] MEDS ORDERED: ONDANSETRON 4 MG/2 ML VIAL ONE (10:24)
[2022-06-23] MEDS ORDERED: SEVOFLURANE 1 UNIT/15 MINUTE INH ONE (10:25)
[2022-06-23] MEDS: CEFEPIME 1,000 MG in SODIUM CHLORIDE 0.9% 100 ML IV SCH ×2 (12:02→20:56)
[2022-06-23] MEDS: INSULIN LISPRO 100 UNIT/ML SUBCUT SCH ×3 (12:02→20:57)
[2022-06-23 12:27] LABS: Basophils % 0.7 % (0.0-0.8); Eosinophils # 0.1 10*3/uL (0.0-0.87); Eosinophils % 1.2 % (0.00-10.9); Hematocrit 30.3 VOL% (42.0-52.0); Hemoglobin 9.4 GM/DL (14.0-18.0); Immature Granulocytes % 0.9 %; Immature Granulocytes Absolute 0.05 #; Lymphocytes # 1.5 10*3/uL (1.4-4.0); Lymphocytes % 25.2 % (21.2-54.2); Mean Corpuscular Volume 86.6 FL (87-102); Mean Platelet Volume 11.5 FL (9.6-12.0); Monocytes # 0.8 10*3/uL (0.11-0.8); Monocytes % 13.7 % (1.7-12.7); Neutrophils % 58.3 % (38.7-73.9); Platelet Count 326 T/CUMM (130-400); Red Cell Distribution Width 14.7 % (9.3-17.3); White Blood Count 5.8 T/CUMM (4-12)
[2022-06-23 12:49] LABS: Albumin 2.7 G/DL (3.4-5.0); Bilirubin,Total 0.4 MG/DL (0.20-1.00); Calcium 9.2 MG/DL (8.5-10.1); Osmolality,Calculated 295.3 MOS/KG (273-304); Potassium 4.8 MMOL/L (3.5-5.1); Total Protein 6.9 G/DL (6.4-8.2)
[2022-06-23] MEDS: MAGNESIUM CHLORIDE 64 MG TABLET PO SCH ×2 (15:03→20:57)
[2022-06-23] MEDS: levETIRAcetam 250 MG TABLET PO SCH ×2 (15:03→20:57)
[2022-06-23] MEDS: carvediloL 25 MG TABLET PO SCH (16:01)
[2022-06-23] MEDS: CALCIUM (CARBONATE) 500 MG TABLET PO SCH (16:01)
[2022-06-23] MEDS: ATORVASTATIN 40 MG TABLET PO SCH (20:57)
[2022-06-23] MEDS: TACROLIMUS 0.5 MG CAPSULE PO SCH (20:57)
[2022-06-23] MEDS ORDERED: INSULIN GLARGINE 100 UNIT/ML SUBCUT SCH (21:00)
[2022-06-23] MEDS: INSULIN GLARGINE 100 UNIT/ML SUBCUT SCH (21:52)
[2022-06-24] MEDS: CEFEPIME 1,000 MG in SODIUM CHLORIDE 0.9% 100 ML IV SCH ×3 (04:28→20:49)
[2022-06-24] MEDS: LACTATED RINGERS 1,000 ML IV SCH (05:04)
[2022-06-24 05:53] LABS: Basophils % 0.3 % (0.0-0.8); Eosinophils # 0.1 10*3/uL (0.0-0.87); Eosinophils % 1.6 % (0.00-10.9); Hematocrit 30.2 VOL% (42.0-52.0); Hemoglobin 9.3 GM/DL (14.0-18.0); Immature Granulocytes % 0.7 %; Immature Granulocytes Absolute 0.04 #; Lymphocytes # 1.7 10*3/uL (1.4-4.0); Lymphocytes % 28.4 % (21.2-54.2); Mean Corpuscular HGB Conc 30.8 GM/DL (32-36); Mean Platelet Volume 11.9 FL (9.6-12.0); Monocytes # 0.7 10*3/uL (0.11-0.8); Monocytes % 11.2 % (1.7-12.7); Neutrophils % 57.8 % (38.7-73.9); Platelet Count 306 T/CUMM (130-400); Red Blood Count 3.47 MC/CUMM (3.8-5.5); Red Cell Distribution Width 14.6 % (9.3-17.3); White Blood Count 6.1 T/CUMM (4-12)
[2022-06-24 06:19] LABS: Osmolality,Calculated 284.4 MOS/KG (273-304); Potassium 4.5 MMOL/L (3.5-5.1)
[2022-06-24] MEDS: INSULIN LISPRO 100 UNIT/ML SUBCUT SCH ×4 (07:43→20:50)
[2022-06-24] MEDS: MAGNESIUM CHLORIDE 64 MG TABLET PO SCH ×3 (08:42→20:51)
[2022-06-24] MEDS: predniSONE 10 MG TABLET PO SCH (08:43)
[2022-06-24] MEDS: CALCIUM (CARBONATE) 500 MG TABLET PO SCH ×2 (08:43→16:15)
[2022-06-24] MEDS: CETIRIZINE 10 MG TABLET PO SCH (08:43)
[2022-06-24] MEDS: carvediloL 25 MG TABLET PO SCH ×2 (08:43→16:15)
[2022-06-24] MEDS: TACROLIMUS 0.5 MG CAPSULE PO SCH ×2 (08:43→20:51)
[2022-06-24] MEDS: ASPIRIN CHEW 81 MG TABLET PO SCH (08:43)
[2022-06-24] MEDS: ASCORBIC ACID 500 MG TABLET PO SCH (08:43)
[2022-06-24] MEDS: levETIRAcetam 250 MG TABLET PO SCH ×3 (08:43→20:52)
[2022-06-24] MEDS: PANTOPRAZOLE 40 MG TABLET PO SCH (08:43)
[2022-06-24] MEDS: DILTIAZEM CD 180 MG CAPSULE PO SCH (08:43)
[2022-06-24] MEDS: FLUTICASONE 50 MCG NASAL SPRAY 16 GM BOTTLE BOTH NARES SCH (08:47)
[2022-06-24] MEDS ORDERED: lisinopriL 5 MG TABLET PO SCH (09:00)
[2022-06-24] MEDS: cilostazoL 50 MG TABLET PO SCH (20:52)
[2022-06-24] MEDS: ATORVASTATIN 40 MG TABLET PO SCH (20:52)
[2022-06-24] MEDS: INSULIN GLARGINE 100 UNIT/ML SUBCUT SCH (20:52)
[2022-06-24] MEDS: MYCOPHENOLATE 180 MG TABLET PO SCH (21:01)
[2022-06-25] MEDS: CEFEPIME 1,000 MG in SODIUM CHLORIDE 0.9% 100 ML IV SCH ×3 (04:02→22:33)
[2022-06-25] MEDS: LACTATED RINGERS 1,000 ML IV SCH (07:04)
[2022-06-25] MEDS: INSULIN LISPRO 100 UNIT/ML SUBCUT SCH ×4 (08:32→22:37)
[2022-06-25] MEDS: TACROLIMUS 0.5 MG CAPSULE PO SCH ×2 (08:33→22:43)
[2022-06-25] MEDS: levETIRAcetam 250 MG TABLET PO SCH ×3 (08:33→22:34)
[2022-06-25] MEDS: MAGNESIUM CHLORIDE 64 MG TABLET PO SCH ×3 (08:33→22:34)
[2022-06-25] MEDS: CETIRIZINE 10 MG TABLET PO SCH (08:33)
[2022-06-25] MEDS: PANTOPRAZOLE 40 MG TABLET PO SCH (08:33)
[2022-06-25] MEDS: carvediloL 25 MG TABLET PO SCH ×2 (08:33→16:55)
[2022-06-25] MEDS: CALCIUM (CARBONATE) 500 MG TABLET PO SCH ×2 (08:33→16:55)
[2022-06-25] MEDS: FLUTICASONE 50 MCG NASAL SPRAY 16 GM BOTTLE BOTH NARES SCH (08:33)
[2022-06-25] MEDS: DILTIAZEM CD 180 MG CAPSULE PO SCH (08:33)
[2022-06-25] MEDS: predniSONE 10 MG TABLET PO SCH (08:34)
[2022-06-25] MEDS: cilostazoL 50 MG TABLET PO SCH ×2 (08:34→22:33)
[2022-06-25] MEDS: ASPIRIN CHEW 81 MG TABLET PO SCH (08:34)
[2022-06-25] MEDS: ASCORBIC ACID 500 MG TABLET PO SCH (08:34)
[2022-06-25] MEDS: MYCOPHENOLATE 180 MG TABLET PO SCH ×2 (09:00→22:35)
[2022-06-25] MEDS: ATORVASTATIN 40 MG TABLET PO SCH (22:34)
[2022-06-25] MEDS: INSULIN GLARGINE 100 UNIT/ML SUBCUT SCH (22:43)
[2022-06-26] MEDS: CEFEPIME 1,000 MG in SODIUM CHLORIDE 0.9% 100 ML IV SCH ×2 (05:37→12:06)
[2022-06-26 06:08] LABS: Basophils % 0.4 % (0.0-0.8); Eosinophils # 0.1 10*3/uL (0.0-0.87); Eosinophils % 1.6 % (0.00-10.9); Hematocrit 29.2 VOL% (42.0-52.0); Hemoglobin 9.1 GM/DL (14.0-18.0); Immature Granulocytes % 0.7 %; Immature Granulocytes Absolute 0.05 #; Lymphocytes # 1.6 10*3/uL (1.4-4.0); Lymphocytes % 23.4 % (21.2-54.2); Mean Corpuscular HGB Conc 31.2 GM/DL (32-36); Mean Corpuscular Volume 85.4 FL (87-102); Mean Platelet Volume 11.8 FL (9.6-12.0); Monocytes # 0.7 10*3/uL (0.11-0.8); Neutrophils % 63.9 % (38.7-73.9); Platelet Count 320 T/CUMM (130-400); Red Blood Count 3.42 MC/CUMM (3.8-5.5); Red Cell Distribution Width 14.6 % (9.3-17.3); White Blood Count 6.9 T/CUMM (4-12)
[2022-06-26 06:39] LABS: Osmolality,Calculated 287.4 MOS/KG (273-304); Potassium 4.3 MMOL/L (3.5-5.1)
[2022-06-26] MEDS: MAGNESIUM CHLORIDE 64 MG TABLET PO SCH (08:20)
[2022-06-26] MEDS: PANTOPRAZOLE 40 MG TABLET PO SCH (08:21)
[2022-06-26] MEDS: DILTIAZEM CD 180 MG CAPSULE PO SCH (08:21)
[2022-06-26] MEDS: CETIRIZINE 10 MG TABLET PO SCH (08:21)
[2022-06-26] MEDS: levETIRAcetam 250 MG TABLET PO SCH (08:21)
[2022-06-26] MEDS: carvediloL 25 MG TABLET PO SCH (08:21)
[2022-06-26] MEDS: cilostazoL 50 MG TABLET PO SCH (08:21)
[2022-06-26] MEDS: ASPIRIN CHEW 81 MG TABLET PO SCH (08:21)
[2022-06-26] MEDS: TACROLIMUS 0.5 MG CAPSULE PO SCH (08:21)
[2022-06-26] MEDS: ASCORBIC ACID 500 MG TABLET PO SCH (08:21)
[2022-06-26] MEDS: predniSONE 10 MG TABLET PO SCH (08:21)
[2022-06-26] MEDS: FLUTICASONE 50 MCG NASAL SPRAY 16 GM BOTTLE BOTH NARES SCH (08:22)
[2022-06-26] MEDS: INSULIN LISPRO 100 UNIT/ML SUBCUT SCH ×2 (08:22→11:32)
[2022-06-26] MEDS: MYCOPHENOLATE 180 MG TABLET PO SCH (08:26)
[2022-06-26] MEDS: CALCIUM (CARBONATE) 500 MG TABLET PO SCH (08:29)
[2022-06-26 10:59] VITALS: BP 128/66
== END 2022-06-26 13:42 | disposition home health service (06) | DRG 617 ==
LOC: N.OR 07:59 → N.SDSINP 07:59 → N.3E 10:03
PROVIDERS: ADMIT Surgery; ATTEND Surgery